=== PATIENT | male | born 1950 | race African-American/Black ===

== ENCOUNTER 2016-08-09 09:39 | Inpatient (IN) | payer MEDICARE, MEDICAID ==
[~2016-08-09] VITALS: Ht 104.1 cm; Wt 40.5 kg
[~2016-08-09 09:39] MED LIST: ALPR1TAB2 PO; BENZ1TAB7 PO; DIPH25CA83 PO; ENAL20TA PO; FERR-63 PO; FLUP1TAB MT; GABA-290 PO; IBUP-2029 PO; METO100T5 PO; NIFE90TA43 PO; QUET50TA21 PO
[2016-08-09] MEDS ORDERED: SODIUM CHLORIDE 0.9% 1,000 ML IV ONE (10:15)
[2016-08-09 10:47] LABS: HEMATOCRIT. 28.9 % (42.0-52.0); HEMOGLOBIN. 9.4 g/dL (14.0-18.0); MEAN CORPUSCULAR HEMOGLOBIN 28.2 pg (28.0-32.0); MEAN CORPUSCULAR HGB CONC 32.4 g/dL (31.0-37.0); MEAN CORPUSCULAR VOLUME 86.8 fL (80.0-94.0); MEAN PLATELET VOLUME 7.1 fl (7.4-10.4); PLATELET 518 x1000/uL (130-400); RED BLOOD CELL COUNT 3.32 mill/uL (4.7-6.1); RED CELL DISTRIBUTION WIDTH 16.5 % (11.6-14.6); WHITE BLOOD COUNT 25.7 x1000/uL (4.5-11.0)
[2016-08-09 10:50] LABS: DIFFERENTIAL COMMENT 1
[2016-08-09 10:55] LABS: INR 1.2; PROTHROMBIN TIME 12.4 sec
[2016-08-09 11:05] LABS: ALANINE AMINOTRANSFERASE 18 IU/L (13-61); ALBUMIN 2.4 g/dL (3.4-5.0); ANION GAP 14; CALCIUM 8.6 mg/dL (8.5-10.1); CARBON DIOXIDE 22 mEq/L (21-32); CHLORIDE 101 mEq/L (98-107); INDEX HEMOLYSI 1 (1-3); INDEX ICTERIC 1 (1-4); INDEX LIPEMIC 1 (1-3); UREA NITROGEN BLOOD 20 mg/dL (7-21); eGFR > 60 mL/min (>60)
[2016-08-09 11:06] LABS: NT PRO B-TYPE NATRIURETIC PEP 2582 pg/mL (5-125); TROPONIN I < 0.02 ng/mL (0.00-0.04)
[2016-08-09 11:36] LABS: PLATELET ESTIMATE SLIGHTLY INCREASED
[2016-08-09 11:37] LABS: HYPOCHROMASIA 1+
[2016-08-09] MEDS ORDERED: CLINDAMYCIN 600 MG in DEXTROSE 5% WATER 50 ML IV ONE (11:45)
[2016-08-09 13:45] VITALS: BP 118/61
[2016-08-09] MEDS ORDERED: MAGNESIUM/ALUMINUM HYDROXIDE/SIMETHICONE 30ML UDC PO PRN (13:45)
[2016-08-09] MEDS ORDERED: ONDANSETRON HCL 4MG/2ML VIAL IV PRN (13:45)
[2016-08-09] MEDS ORDERED: IPRATROPIUM/ALBUTEROL 0.5-3(2.5)MG/3ML NEB INH PRN (13:45)
[2016-08-09 14:21] VITALS: BP 118/61
[2016-08-09] MEDS ORDERED: AMLODIPINE 5MG TABLET PO SCH (14:45)
[2016-08-09] MEDS ORDERED: ASPIRIN 81MG EC TABLET PO SCH (14:45)
[2016-08-09] MEDS: ACETAMINOPHEN 325MG TABLET PO PRN (15:02)
[2016-08-09] MEDS: ENOXAPARIN 40MG/0.4ML SYR SUBCUT SCH (15:04)
[2016-08-09 15:13] LABS: *AMPHETAMINES SCREEN URINE NEGATIVE (NEGATIVE); *BARBITURATES SCREEN URINE NEGATIVE (NEGATIVE); *BENZODIAZEPINES SCREEN URINE NEGATIVE (NEGATIVE); *COCAINE SCREEN URINE NEGATIVE (NEGATIVE); CANNABINOID URINE SCREEN PRESUMTIVE POSITIVE (NEGATIVE); ECSTASY MDMA SCREEN URINE NEGATIVE (NEGATIVE); METHADONE URINE SCREEN NEGATIVE (NEGATIVE); OPIATES URINE SCREEN PRESUMTIVE POSITIVE (NEGATIVE); PHENCYCLIDINE URINE SCREEN NEGATIVE (NEGATIVE)
[2016-08-09 16:00] VITALS: BP 104/58
[2016-08-09] MEDS ORDERED: INFLUENZA VIRUS VACCINE 0.5ML SYR IM ONE (16:00)
[2016-08-09] MEDS ORDERED: PNEUMOCOCCAL 23-VAL P-SAC VAC 0.5 ML IM ONE (16:00)
[2016-08-09] MEDS: PIPERACILLIN/TAZ 3.375G PREMIX 50 ML IV SCH ×2 (16:06→22:02)
[2016-08-09] MEDS ORDERED: IBUPROFEN 600MG TABLET PO PRN (16:45)
[2016-08-09] MEDS: BENZTROPINE MESYLATE 1MG TABLET PO SCH (16:59)
[2016-08-09] MEDS: HYDROCODONE/ACETAMINOPHEN 5/325MG TABLET PO PRN (16:59)
[2016-08-09] MEDS: FERROUS SULFATE 325MG TABLET PO SCH (16:59)
[2016-08-09] MEDS: GABAPENTIN 300MG CAPSULE PO SCH ×2 (17:00→17:18)
[2016-08-09] MEDS ORDERED: MEDICATION NOT ON FORMULARY EA (Gabapentin 600 MG) PO SCH (17:00)
[2016-08-09 17:04] LABS: ANION GAP 15; CALCIUM 8.8 mg/dL (8.5-10.1); CARBON DIOXIDE 21 mEq/L (21-32); CHLORIDE 102 mEq/L (98-107); CREATINE KINASE 127 IU/L (39-308); CREATINE KINASE MB FRACTION 1.3 ng/mL (0.5-3.6); INDEX HEMOLYSI 1 (1-3); INDEX ICTERIC 1 (1-4); INDEX LIPEMIC 1 (1-3); TROPONIN I < 0.02 ng/mL (0.00-0.04); UREA NITROGEN BLOOD 24 mg/dL (7-21); eGFR > 60 mL/min (>60)
[2016-08-09 20:00] VITALS: BP 136/80
[2016-08-09] MEDS ORDERED: MEDICATION NOT ON FORMULARY EA (Alprazolam (Xanax) 1 MG) PO SCH (21:00)
[2016-08-09] MEDS ORDERED: FLUPHENAZINE HCL 1 MG MT SCH (21:00)
[2016-08-09] MEDS: BLOOD SUGAR DIAGNOSTIC STRIP TEST SCH (21:00)
[2016-08-09] MEDS: INSULIN LISPRO 100 UNITS/ML SUBCUT SCH (21:00)
[2016-08-09] MEDS: DIPHENHYDRAMINE 50MG CAPSULE PO SCH (22:01)
[2016-08-09] MEDS: ALPRAZOLAM 0.5 MG TABLET PO SCH (22:01)
[2016-08-09] MEDS: QUETIAPINE FUMARATE 50MG TABLET PO SCH (22:01)
[2016-08-09] MEDS: METOPROLOL TARTRATE 25MG TABLET PO SCH (22:02)
[2016-08-09] MEDS: FLUPHENAZINE HCL 1 MG PO SCH (23:05)
[2016-08-10] VITALS (9 sets, daily range): BP systolic 68–118; BP diastolic 45–76
[2016-08-10 04:04] LABS: CREATINE KINASE 84 IU/L (39-308); CREATINE KINASE MB FRACTION 1.6 ng/mL (0.5-3.6); INDEX HEMOLYSI 1 (1-3); TROPONIN I < 0.02 ng/mL (0.00-0.04)
[2016-08-10] MEDS: PIPERACILLIN/TAZ 3.375G PREMIX 50 ML IV SCH ×3 (05:17→22:24)
[2016-08-10] MEDS: HYDROCODONE/ACETAMINOPHEN 5/325MG TABLET PO PRN ×2 (05:17→22:54)
[2016-08-10 05:55] LABS: HEMATOCRIT. 29.4 % (42.0-52.0); HEMOGLOBIN. 9.6 g/dL (14.0-18.0); MEAN CORPUSCULAR HEMOGLOBIN 28.4 pg (28.0-32.0); MEAN CORPUSCULAR HGB CONC 32.6 g/dL (31.0-37.0); MEAN CORPUSCULAR VOLUME 87.3 fL (80.0-94.0); MEAN PLATELET VOLUME 6.8 fl (7.4-10.4); PLATELET 492 x1000/uL (130-400); RED BLOOD CELL COUNT 3.38 mill/uL (4.7-6.1); RED CELL DISTRIBUTION WIDTH 16.2 % (11.6-14.6); WHITE BLOOD COUNT 21.7 x1000/uL (4.5-11.0)
[2016-08-10] MEDS: BLOOD SUGAR DIAGNOSTIC STRIP TEST SCH ×4 (06:25→21:00)
[2016-08-10 06:27] LABS: ANION GAP 14; CALCIUM 8.5 mg/dL (8.5-10.1); CARBON DIOXIDE 21 mEq/L (21-32); CHLORIDE 102 mEq/L (98-107); HDL CHOLESTEROL 29 mg/dL (40-59); INDEX HEMOLYSI 1 (1-3); INDEX ICTERIC 1 (1-4); INDEX LIPEMIC 1 (1-3); LDL CHOLESTEROL 71 mg/dL (5-100); MAGNESIUM 2.1 mg/dL (1.8-2.4); TRIGLYCERIDE 96 mg/dL (0-150); UREA NITROGEN BLOOD 29 mg/dL (7-21); eGFR > 60 mL/min (>60)
[2016-08-10 06:28] LABS: TROPONIN I < 0.02 ng/mL (0.00-0.04)
[2016-08-10 06:51] LABS: DIFFERENTIAL COMMENT 1
[2016-08-10] MEDS: INSULIN LISPRO 100 UNITS/ML SUBCUT SCH ×4 (07:50→22:40)
[2016-08-10] MEDS: AMLODIPINE 5MG TABLET PO SCH (09:00)
[2016-08-10] MEDS: METOPROLOL TARTRATE 25MG TABLET PO SCH ×2 (09:00→21:00)
[2016-08-10] MEDS: BENZTROPINE MESYLATE 1MG TABLET PO SCH ×2 (09:07→17:59)
[2016-08-10] MEDS: FERROUS SULFATE 325MG TABLET PO SCH ×2 (09:08→17:59)
[2016-08-10] MEDS: ASPIRIN 81MG EC TABLET PO SCH (09:08)
[2016-08-10] MEDS: GABAPENTIN 300MG CAPSULE PO SCH ×2 (09:10→17:59)
[2016-08-10 12:28] LABS: ATYPICAL LYMPHOCYTES 2; PLATELET ESTIMATE SLIGHTLY INCREASED
[2016-08-10] MEDS ORDERED: SODIUM CHLORIDE 0.9% 250 ML IV ONE (13:15)
[2016-08-10 13:47] LABS: CLARITY URINE TURBID (CLEAR); COLOR URINE YELLOW (YELLOW); GLUCOSE URINE NEGATIVE (NEGATIVE); KETONES URINE NEGATIVE (NEGATIVE); LEUKOCYTE ESTERASE URINE 3+ (NEGATIVE); NITRITE URINE NEGATIVE (NEGATIVE); OCCULT BLOOD URINE 2+ (NEGATIVE); PROTEIN URINE 2+ (NEGATIVE); SPECIFIC GRAVITY URINE 1.026 (1.005-1.030); UROBILINOGEN URINE 0.2 E.U./dL (0.2-1.0)
[2016-08-10 14:21] LABS: WBC URINE TNTC /hpf (0-2)
[2016-08-10 14:23] LABS: BACTERIA URINE 3+; SQUAMOUS EPITHELIAL CELL URINE FEW /lpf (RARE/1+)
[2016-08-10] MEDS: ENOXAPARIN 40MG/0.4ML SYR SUBCUT SCH (16:28)
[2016-08-10] MEDS: ALPRAZOLAM 0.5 MG TABLET PO SCH (21:00)
[2016-08-10] MEDS: QUETIAPINE FUMARATE 50MG TABLET PO SCH (21:00)
[2016-08-10] MEDS: DIPHENHYDRAMINE 50MG CAPSULE PO SCH (21:00)
[2016-08-10] MEDS: FLUPHENAZINE HCL 1 MG PO SCH (22:46)
[2016-08-11] VITALS (11 sets, daily range): BP systolic 108–137; BP diastolic 46–70
[2016-08-11] MEDS: PIPERACILLIN/TAZ 3.375G PREMIX 50 ML IV SCH ×3 (05:26→22:00)
[2016-08-11 05:55] LABS: HEMATOCRIT. 27.4 % (42.0-52.0); MEAN CORPUSCULAR HGB CONC 32.7 g/dL (31.0-37.0); MEAN CORPUSCULAR VOLUME 85.6 fL (80.0-94.0); MEAN PLATELET VOLUME 7.2 fl (7.4-10.4); PLATELET 521 x1000/uL (130-400); RED CELL DISTRIBUTION WIDTH 16.4 % (11.6-14.6); WHITE BLOOD COUNT 15.7 x1000/uL (4.5-11.0)
[2016-08-11 06:33] LABS: CHLORIDE 104 mEq/L (98-107); INDEX HEMOLYSI 1 (1-3); INDEX ICTERIC 1 (1-4); INDEX LIPEMIC 1 (1-3)
[2016-08-11 06:35] LABS: DIFFERENTIAL COMMENT 1
[2016-08-11 06:40] LABS: ANION GAP 16; CALCIUM 8.4 mg/dL (8.5-10.1); CARBON DIOXIDE 21 mEq/L (21-32); MAGNESIUM 2.4 mg/dL (1.8-2.4); UREA NITROGEN BLOOD 32 mg/dL (7-21); eGFR > 60 mL/min (>60)
[2016-08-11] MEDS: BLOOD SUGAR DIAGNOSTIC STRIP TEST SCH ×4 (07:30→21:00)
[2016-08-11] MEDS: INSULIN LISPRO 100 UNITS/ML SUBCUT SCH ×4 (08:00→21:00)
[2016-08-11] MEDS: FERROUS SULFATE 325MG TABLET PO SCH ×2 (09:07→16:37)
[2016-08-11] MEDS: ASPIRIN 81MG EC TABLET PO SCH (09:07)
[2016-08-11] MEDS: METOPROLOL TARTRATE 25MG TABLET PO SCH ×2 (09:08→21:11)
[2016-08-11] MEDS: GABAPENTIN 300MG CAPSULE PO SCH ×2 (09:08→16:39)
[2016-08-11] MEDS: BENZTROPINE MESYLATE 1MG TABLET PO SCH ×2 (09:08→16:38)
[2016-08-11] MEDS: AMLODIPINE 5MG TABLET PO SCH (09:08)
[2016-08-11 12:28] LABS: ATYPICAL LYMPHOCYTES 1; PLATELET ESTIMATE INCREASED
[2016-08-11] MEDS: ENOXAPARIN 40MG/0.4ML SYR SUBCUT SCH (16:37)
[2016-08-11] MEDS: IBUPROFEN 600MG TABLET PO PRN (16:38)
[2016-08-11] MEDS: QUETIAPINE FUMARATE 50MG TABLET PO SCH (21:08)
[2016-08-11] MEDS: ALPRAZOLAM 0.5 MG TABLET PO SCH (21:08)
[2016-08-11] MEDS: FLUPHENAZINE HCL 1 MG PO SCH (21:08)
[2016-08-11] MEDS: DIPHENHYDRAMINE 50MG CAPSULE PO SCH (21:08)
[2016-08-12] VITALS (23 sets, daily range): BP systolic 65–142; BP diastolic 17–80
[2016-08-12] MEDS: IBUPROFEN 600MG TABLET PO PRN (00:51)
[2016-08-12] MEDS: PIPERACILLIN/TAZ 3.375G PREMIX 50 ML IV SCH ×3 (05:39→20:57)
[2016-08-12] MEDS: INSULIN LISPRO 100 UNITS/ML SUBCUT SCH ×4 (08:00→20:58)
[2016-08-12] MEDS: ASPIRIN 81MG EC TABLET PO SCH (08:25)
[2016-08-12] MEDS: BLOOD SUGAR DIAGNOSTIC STRIP TEST SCH ×4 (08:25→20:57)
[2016-08-12] MEDS: BENZTROPINE MESYLATE 1MG TABLET PO SCH ×2 (08:25→18:12)
[2016-08-12] MEDS: GABAPENTIN 300MG CAPSULE PO SCH ×2 (08:25→17:00)
[2016-08-12] MEDS: FERROUS SULFATE 325MG TABLET PO SCH ×2 (08:25→18:14)
[2016-08-12] MEDS: AMLODIPINE 5MG TABLET PO SCH (08:29)
[2016-08-12] MEDS: METOPROLOL TARTRATE 25MG TABLET PO SCH ×2 (08:29→20:58)
[2016-08-12] MEDS: ENOXAPARIN 40MG/0.4ML SYR SUBCUT SCH (14:12)
[2016-08-12] MEDS: DIPHENHYDRAMINE 50MG CAPSULE PO SCH ×2 (14:12→20:57)
[2016-08-12 16:36] LABS: EOSINOPHILS % 6.4 % (0.0-5.0); HEMATOCRIT. 28.1 % (42.0-52.0); HEMOGLOBIN. 9.1 g/dL (14.0-18.0); LYMPHOCYTES % 11.7 % (20.0-50.0); MEAN CORPUSCULAR HEMOGLOBIN 28.1 pg (28.0-32.0); MEAN CORPUSCULAR HGB CONC 32.4 g/dL (31.0-37.0); MEAN CORPUSCULAR VOLUME 86.7 fL (80.0-94.0); MEAN PLATELET VOLUME 7.3 fl (7.4-10.4); MONOCYTES % 9.3 % (2.0-8.0); NEUTROPHILS % 71.6 % (40.0-76.0); PLATELET 525 x1000/uL (130-400); RED BLOOD CELL COUNT 3.24 mill/uL (4.7-6.1); RED CELL DISTRIBUTION WIDTH 16.6 % (11.6-14.6); WHITE BLOOD COUNT 14.6 x1000/uL (4.5-11.0)
[2016-08-12 16:48] LABS: ANION GAP 10; CALCIUM 8.2 mg/dL (8.5-10.1); CARBON DIOXIDE 27 mEq/L (21-32); CHLORIDE 104 mEq/L (98-107); INDEX HEMOLYSI 1 (1-3); INDEX ICTERIC 1 (1-4); INDEX LIPEMIC 1 (1-3); UREA NITROGEN BLOOD 20 mg/dL (7-21); eGFR > 60 mL/min (>60)
[2016-08-12] MEDS: FLUPHENAZINE HCL 1 MG PO SCH (20:57)
[2016-08-12] MEDS: ALPRAZOLAM 0.5 MG TABLET PO SCH (20:57)
[2016-08-12] MEDS: QUETIAPINE FUMARATE 50MG TABLET PO SCH (20:57)
[2016-08-13] VITALS (23 sets, daily range): BP systolic 58–155; BP diastolic 25–91
[2016-08-13] MEDS: PIPERACILLIN/TAZ 3.375G PREMIX 50 ML IV SCH ×3 (05:52→21:28)
[2016-08-13] MEDS: BLOOD SUGAR DIAGNOSTIC STRIP TEST SCH ×4 (07:18→21:30)
[2016-08-13] MEDS: INSULIN LISPRO 100 UNITS/ML SUBCUT SCH ×4 (07:18→21:00)
[2016-08-13] MEDS: FERROUS SULFATE 325MG TABLET PO SCH ×2 (08:39→19:14)
[2016-08-13] MEDS: GABAPENTIN 300MG CAPSULE PO SCH ×3 (08:39→17:00)
[2016-08-13] MEDS: ASPIRIN 81MG EC TABLET PO SCH ×3 (08:39→09:00)
[2016-08-13] MEDS: METOPROLOL TARTRATE 25MG TABLET PO SCH ×2 (08:39→21:29)
[2016-08-13] MEDS: BENZTROPINE MESYLATE 1MG TABLET PO SCH ×2 (08:39→19:14)
[2016-08-13] MEDS: AMLODIPINE 5MG TABLET PO SCH (08:40)
[2016-08-13] MEDS: IBUPROFEN 600MG TABLET PO PRN (08:50)
[2016-08-13] MEDS ORDERED: SODIUM CHLORIDE 0.9% 250 ML IV SCH (09:15)
[2016-08-13] MEDS: DIPHENHYDRAMINE 50MG/ML VIAL IV PRN (10:21)
[2016-08-13] MEDS ORDERED: ALBUMIN HUMAN 25GM/100ML (25%) IV SCH (12:30)
[2016-08-13] MEDS: ENOXAPARIN 40MG/0.4ML SYR SUBCUT SCH (13:57)
[2016-08-13] MEDS: FLUPHENAZINE HCL 1 MG PO SCH (21:29)
[2016-08-13] MEDS: ALPRAZOLAM 0.5 MG TABLET PO SCH (21:29)
[2016-08-13] MEDS: QUETIAPINE FUMARATE 50MG TABLET PO SCH (21:29)
[2016-08-13] MEDS: DIPHENHYDRAMINE 50MG CAPSULE PO SCH (21:29)
[2016-08-13 23:48] LABS: BASOPHILS % 0.7 % (0.0-2.0); EOSINOPHILS % 8.6 % (0.0-5.0); HEMATOCRIT. 28.4 % (42.0-52.0); HEMOGLOBIN. 9.1 g/dL (14.0-18.0); LYMPHOCYTES % 21.2 % (20.0-50.0); MEAN CORPUSCULAR HGB CONC 31.9 g/dL (31.0-37.0); MEAN CORPUSCULAR VOLUME 87.7 fL (80.0-94.0); MEAN PLATELET VOLUME 7.1 fl (7.4-10.4); MONOCYTES % 12.7 % (2.0-8.0); NEUTROPHILS % 56.8 % (40.0-76.0); PLATELET 514 x1000/uL (130-400); RED BLOOD CELL COUNT 3.25 mill/uL (4.7-6.1); RED CELL DISTRIBUTION WIDTH 16.3 % (11.6-14.6); WHITE BLOOD COUNT 11.5 x1000/uL (4.5-11.0)
[2016-08-14] VITALS (18 sets, daily range): BP systolic 80–168; BP diastolic 44–111
[2016-08-14 00:16] LABS: ANION GAP 11; CALCIUM 8.4 mg/dL (8.5-10.1); CARBON DIOXIDE 25 mEq/L (21-32); CHLORIDE 105 mEq/L (98-107); INDEX HEMOLYSI 1 (1-3); INDEX ICTERIC 1 (1-4); INDEX LIPEMIC 1 (1-3); UREA NITROGEN BLOOD 14 mg/dL (7-21); eGFR > 60 mL/min (>60)
[2016-08-14] MEDS: PIPERACILLIN/TAZ 3.375G PREMIX 50 ML IV SCH ×3 (06:02→22:28)
[2016-08-14] MEDS: BLOOD SUGAR DIAGNOSTIC STRIP TEST SCH ×4 (07:30→21:00)
[2016-08-14] MEDS: INSULIN LISPRO 100 UNITS/ML SUBCUT SCH ×4 (08:00→22:44)
[2016-08-14] MEDS: ASPIRIN 81MG EC TABLET PO SCH ×2 (09:00→09:03)
[2016-08-14] MEDS: BENZTROPINE MESYLATE 1MG TABLET PO SCH ×3 (09:00→16:26)
[2016-08-14] MEDS: FERROUS SULFATE 325MG TABLET PO SCH ×3 (09:00→16:26)
[2016-08-14] MEDS: GABAPENTIN 300MG CAPSULE PO SCH ×2 (09:00→16:26)
[2016-08-14] MEDS: AMLODIPINE 5MG TABLET PO SCH ×2 (09:00→09:04)
[2016-08-14] MEDS: METOPROLOL TARTRATE 25MG TABLET PO SCH ×3 (09:00→22:29)
[2016-08-14] MEDS: HYDROCODONE/ACETAMINOPHEN 5/325MG TABLET PO PRN ×2 (09:03→16:26)
[2016-08-14 11:35] LABS: ANION GAP 12; CALCIUM 8.8 mg/dL (8.5-10.1); CARBON DIOXIDE 25 mEq/L (21-32); CHLORIDE 105 mEq/L (98-107); INDEX HEMOLYSI 1 (1-3); INDEX ICTERIC 1 (1-4); INDEX LIPEMIC 1 (1-3); UREA NITROGEN BLOOD 14 mg/dL (7-21); eGFR > 60 mL/min (>60)
[2016-08-14 11:40] LABS: DIFFERENTIAL COMMENT 1; HEMATOCRIT. 31.4 % (42.0-52.0); HEMOGLOBIN. 10.3 g/dL (14.0-18.0); MEAN CORPUSCULAR HEMOGLOBIN 28.4 pg (28.0-32.0); MEAN CORPUSCULAR HGB CONC 32.8 g/dL (31.0-37.0); MEAN CORPUSCULAR VOLUME 86.3 fL (80.0-94.0); MEAN PLATELET VOLUME 6.9 fl (7.4-10.4); PLATELET 603 x1000/uL (130-400); RED BLOOD CELL COUNT 3.64 mill/uL (4.7-6.1); RED CELL DISTRIBUTION WIDTH 15.9 % (11.6-14.6); WHITE BLOOD COUNT 16.2 x1000/uL (4.5-11.0)
[2016-08-14 12:12] LABS: ANISOCYTOSIS 1+; PLATELET ESTIMATE INCREASED
[2016-08-14] MEDS: ENOXAPARIN 40MG/0.4ML SYR SUBCUT SCH (13:24)
[2016-08-14] MEDS: ALPRAZOLAM 0.5 MG TABLET PO SCH (21:00)
[2016-08-14] MEDS: FLUPHENAZINE HCL 1 MG PO SCH (21:00)
[2016-08-14] MEDS: QUETIAPINE FUMARATE 50MG TABLET PO SCH (22:29)
[2016-08-14] MEDS: DIPHENHYDRAMINE 50MG CAPSULE PO SCH (22:29)
[2016-08-15] VITALS (18 sets, daily range): BP systolic 85–175; BP diastolic 63–135
[2016-08-15] MEDS: IBUPROFEN 600MG TABLET PO PRN (03:19)
[2016-08-15] MEDS: DIPHENHYDRAMINE 50MG/ML VIAL IV PRN (04:56)
[2016-08-15] MEDS: PIPERACILLIN/TAZ 3.375G PREMIX 50 ML IV SCH ×3 (04:57→21:27)
[2016-08-15 07:04] LABS: BASOPHILS % 0.3 % (0.0-2.0); EOSINOPHILS % 3.8 % (0.0-5.0); HEMOGLOBIN. 9.4 g/dL (14.0-18.0); LYMPHOCYTES % 11.6 % (20.0-50.0); MEAN CORPUSCULAR HEMOGLOBIN 27.9 pg (28.0-32.0); MEAN CORPUSCULAR HGB CONC 32.3 g/dL (31.0-37.0); MEAN CORPUSCULAR VOLUME 86.4 fL (80.0-94.0); MEAN PLATELET VOLUME 7.2 fl (7.4-10.4); MONOCYTES % 8.6 % (2.0-8.0); NEUTROPHILS % 75.7 % (40.0-76.0); PLATELET 580 x1000/uL (130-400); RED BLOOD CELL COUNT 3.36 mill/uL (4.7-6.1); RED CELL DISTRIBUTION WIDTH 16.2 % (11.6-14.6); WHITE BLOOD COUNT 15.2 x1000/uL (4.5-11.0)
[2016-08-15 07:29] LABS: CHLORIDE 101 mEq/L (98-107); INDEX HEMOLYSI 1 (1-3); INDEX ICTERIC 1 (1-4); INDEX LIPEMIC 1 (1-3)
[2016-08-15 07:43] LABS: ANION GAP 13; CALCIUM 8.8 mg/dL (8.5-10.1); CARBON DIOXIDE 25 mEq/L (21-32); UREA NITROGEN BLOOD 13 mg/dL (7-21); eGFR > 60 mL/min (>60)
[2016-08-15] MEDS: BLOOD SUGAR DIAGNOSTIC STRIP TEST SCH ×4 (07:45→20:35)
[2016-08-15] MEDS: INSULIN LISPRO 100 UNITS/ML SUBCUT SCH ×4 (07:46→20:42)
[2016-08-15] MEDS: BENZTROPINE MESYLATE 1MG TABLET PO SCH ×2 (08:27→17:16)
[2016-08-15] MEDS: FERROUS SULFATE 325MG TABLET PO SCH ×2 (08:28→17:16)
[2016-08-15] MEDS: ASPIRIN 81MG EC TABLET PO SCH (08:28)
[2016-08-15] MEDS: GABAPENTIN 300MG CAPSULE PO SCH ×2 (08:28→17:00)
[2016-08-15] MEDS: METOPROLOL TARTRATE 25MG TABLET PO SCH ×3 (09:00→20:35)
[2016-08-15] MEDS: AMLODIPINE 5MG TABLET PO SCH ×2 (09:00→12:09)
[2016-08-15] MEDS ORDERED: DIPHENHYDRAMINE 50MG/ML VIAL IV ONE (11:00)
[2016-08-15] MEDS ORDERED: FENTANYL CITRATE/PF 50MCG/ML 2ML VIAL IV ONE (11:00)
[2016-08-15] MEDS: ENOXAPARIN 40MG/0.4ML SYR SUBCUT SCH (13:10)
[2016-08-15] MEDS ORDERED: IOHEXOL-300 100 ML BOTTLE ONE (13:55)
[2016-08-15] MEDS: CLONIDINE 0.1MG TABLET PO PRN (15:04)
[2016-08-15] MEDS: QUETIAPINE FUMARATE 50MG TABLET PO SCH (20:34)
[2016-08-15] MEDS: FLUPHENAZINE HCL 1 MG PO SCH (20:34)
[2016-08-15] MEDS: DIPHENHYDRAMINE 50MG CAPSULE PO SCH (20:34)
[2016-08-16] VITALS: BP 130/74
[2016-08-16] MEDS: IBUPROFEN 600MG TABLET PO PRN ×3 (00:34→20:13)
[2016-08-16] MEDS: DIPHENHYDRAMINE 50MG/ML VIAL IV PRN ×2 (00:35→22:09)
[2016-08-16 04:00] VITALS: BP 146/70
[2016-08-16] MEDS: PIPERACILLIN/TAZ 3.375G PREMIX 50 ML IV SCH ×3 (06:01→22:05)
[2016-08-16] MEDS: BLOOD SUGAR DIAGNOSTIC STRIP TEST SCH ×4 (06:12→20:13)
[2016-08-16] MEDS: INSULIN LISPRO 100 UNITS/ML SUBCUT SCH ×4 (07:15→20:17)
[2016-08-16 07:50] LABS: BASOPHILS % 0.4 % (0.0-2.0); EOSINOPHILS % 4.4 % (0.0-5.0); HEMATOCRIT. 28.8 % (42.0-52.0); HEMOGLOBIN. 9.4 g/dL (14.0-18.0); LYMPHOCYTES % 12.2 % (20.0-50.0); MEAN CORPUSCULAR HEMOGLOBIN 28.1 pg (28.0-32.0); MEAN CORPUSCULAR HGB CONC 32.5 g/dL (31.0-37.0); MEAN CORPUSCULAR VOLUME 86.5 fL (80.0-94.0); MONOCYTES % 10.8 % (2.0-8.0); NEUTROPHILS % 72.2 % (40.0-76.0); PLATELET 555 x1000/uL (130-400); RED BLOOD CELL COUNT 3.33 mill/uL (4.7-6.1); RED CELL DISTRIBUTION WIDTH 16.1 % (11.6-14.6); WHITE BLOOD COUNT 15.9 x1000/uL (4.5-11.0)
[2016-08-16 08:00] VITALS: BP 145/74
[2016-08-16 08:04] LABS: ANION GAP 12; CARBON DIOXIDE 26 mEq/L (21-32); CHLORIDE 101 mEq/L (98-107); INDEX HEMOLYSI 1 (1-3); INDEX ICTERIC 1 (1-4); INDEX LIPEMIC 1 (1-3); UREA NITROGEN BLOOD 14 mg/dL (7-21); eGFR > 60 mL/min (>60)
[2016-08-16] MEDS: GABAPENTIN 300MG CAPSULE PO SCH ×2 (08:06→16:55)
[2016-08-16] MEDS: METOPROLOL TARTRATE 25MG TABLET PO SCH ×2 (08:06→20:12)
[2016-08-16] MEDS: BENZTROPINE MESYLATE 1MG TABLET PO SCH ×2 (08:07→16:51)
[2016-08-16] MEDS: FERROUS SULFATE 325MG TABLET PO SCH ×2 (08:07→16:51)
[2016-08-16] MEDS: ASPIRIN 81MG EC TABLET PO SCH (08:07)
[2016-08-16] MEDS: AMLODIPINE 5MG TABLET PO SCH (08:07)
[2016-08-16 12:00] VITALS: BP 138/75
[2016-08-16] MEDS: ENOXAPARIN 40MG/0.4ML SYR SUBCUT SCH (14:30)
[2016-08-16 16:00] VITALS: BP 160/86
[2016-08-16] MEDS: CLONIDINE 0.1MG TABLET PO PRN (16:51)
[2016-08-16 20:00] VITALS: BP 158/79
[2016-08-16] MEDS: FLUPHENAZINE HCL 1 MG PO SCH (20:12)
[2016-08-16] MEDS: DIPHENHYDRAMINE 50MG CAPSULE PO SCH (20:12)
[2016-08-16] MEDS: QUETIAPINE FUMARATE 50MG TABLET PO SCH (20:12)
[2016-08-17] VITALS: BP 130/72
[2016-08-17] MEDS: ACETAMINOPHEN 325MG TABLET PO PRN ×2 (00:21→09:30)
[2016-08-17 04:00] VITALS: BP 121/80
[2016-08-17] MEDS: DIPHENHYDRAMINE 50MG/ML VIAL IV PRN ×3 (04:22→23:44)
[2016-08-17] MEDS: PIPERACILLIN/TAZ 3.375G PREMIX 50 ML IV SCH ×3 (05:52→22:29)
[2016-08-17] MEDS: BLOOD SUGAR DIAGNOSTIC STRIP TEST SCH ×4 (05:59→20:44)
[2016-08-17] MEDS: INSULIN LISPRO 100 UNITS/ML SUBCUT SCH ×4 (06:53→20:44)
[2016-08-17 08:00] VITALS: BP 148/71
[2016-08-17] MEDS: ASPIRIN 81MG EC TABLET PO SCH ×2 (09:00→09:30)
[2016-08-17] MEDS: GABAPENTIN 300MG CAPSULE PO SCH ×2 (09:00→17:00)
[2016-08-17] MEDS: FERROUS SULFATE 325MG TABLET PO SCH ×2 (09:30→18:10)
[2016-08-17] MEDS: AMLODIPINE 5MG TABLET PO SCH (09:32)
[2016-08-17] MEDS: BENZTROPINE MESYLATE 1MG TABLET PO SCH ×2 (09:34→18:11)
[2016-08-17] MEDS: METOPROLOL TARTRATE 25MG TABLET PO SCH ×2 (09:34→20:39)
[2016-08-17] MEDS: IBUPROFEN 600MG TABLET PO PRN ×2 (11:41→22:45)
[2016-08-17 12:00] VITALS: BP 144/83
[2016-08-17] MEDS: FLUPHENAZINE HCL 1 MG PO SCH (12:44)
[2016-08-17] MEDS ORDERED: ENOXAPARIN 30MG/0.3ML SYR SUBCUT SCH (13:21)
[2016-08-17] MEDS: ENOXAPARIN 30MG/0.3ML SYR SUBCUT SCH (13:48)
[2016-08-17 16:00] VITALS: BP 160/92
[2016-08-17 19:01] LABS: CLARITY URINE CLEAR (CLEAR); COLOR URINE YELLOW (YELLOW); GLUCOSE URINE NEGATIVE (NEGATIVE); KETONES URINE NEGATIVE (NEGATIVE); LEUKOCYTE ESTERASE URINE 3+ (NEGATIVE); NITRITE URINE NEGATIVE (NEGATIVE); OCCULT BLOOD URINE 3+ (NEGATIVE); PROTEIN URINE 2+ (NEGATIVE); SPECIFIC GRAVITY URINE 1.015 (1.005-1.030); UROBILINOGEN URINE 0.2 E.U./dL (0.2-1.0)
[2016-08-17 20:00] VITALS: BP 164/76
[2016-08-17 20:05] LABS: BACTERIA URINE 1+; RBC URINE 25-50 /hpf (0-2); SQUAMOUS EPITHELIAL CELL URINE NONE SEEN /lpf (RARE/1+)
[2016-08-17] MEDS: DIPHENHYDRAMINE 50MG CAPSULE PO SCH (20:39)
[2016-08-17] MEDS: QUETIAPINE FUMARATE 50MG TABLET PO SCH (20:40)
[2016-08-17 21:10] LABS: CLARITY URINE CLOUDY (CLEAR); COLOR URINE ORANGE (YELLOW); GLUCOSE URINE NEGATIVE (NEGATIVE); KETONES URINE NEGATIVE (NEGATIVE); LEUKOCYTE ESTERASE URINE 3+ (NEGATIVE); NITRITE URINE NEGATIVE (NEGATIVE); OCCULT BLOOD URINE 3+ (NEGATIVE); PROTEIN URINE 2+ (NEGATIVE); UROBILINOGEN URINE 0.2 E.U./dL (0.2-1.0)
[2016-08-18] VITALS: BP 129/75
[2016-08-18 04:00] VITALS: BP 159/93
[2016-08-18] MEDS: BLOOD SUGAR DIAGNOSTIC STRIP TEST SCH ×4 (06:02→21:00)
[2016-08-18] MEDS: PIPERACILLIN/TAZ 3.375G PREMIX 50 ML IV SCH ×3 (06:04→21:00)
[2016-08-18] MEDS: INSULIN LISPRO 100 UNITS/ML SUBCUT SCH ×4 (06:15→21:00)
[2016-08-18 07:43] LABS: BASOPHILS % 0.8 % (0.0-2.0); EOSINOPHILS % 5.1 % (0.0-5.0); LYMPHOCYTES % 9.3 % (20.0-50.0); MEAN CORPUSCULAR HGB CONC 32.2 g/dL (31.0-37.0); MEAN CORPUSCULAR VOLUME 86.8 fL (80.0-94.0); MEAN PLATELET VOLUME 7.4 fl (7.4-10.4); MONOCYTES % 11.4 % (2.0-8.0); NEUTROPHILS % 73.4 % (40.0-76.0); PLATELET 566 x1000/uL (130-400); RED BLOOD CELL COUNT 3.23 mill/uL (4.7-6.1); RED CELL DISTRIBUTION WIDTH 16.5 % (11.6-14.6); WHITE BLOOD COUNT 16.1 x1000/uL (4.5-11.0)
[2016-08-18 08:00] VITALS: BP 146/62
[2016-08-18] MEDS: GABAPENTIN 300MG CAPSULE PO SCH ×2 (09:00→16:44)
[2016-08-18] MEDS: AMLODIPINE 5MG TABLET PO SCH (09:52)
[2016-08-18] MEDS: BENZTROPINE MESYLATE 1MG TABLET PO SCH ×2 (09:52→16:44)
[2016-08-18] MEDS: FLUPHENAZINE HCL 1 MG PO SCH (09:53)
[2016-08-18] MEDS: ASPIRIN 81MG EC TABLET PO SCH (09:53)
[2016-08-18] MEDS: FERROUS SULFATE 325MG TABLET PO SCH ×2 (09:53→16:44)
[2016-08-18] MEDS: METOPROLOL TARTRATE 25MG TABLET PO SCH ×2 (09:53→20:44)
[2016-08-18 12:00] VITALS: BP 139/66
[2016-08-18] MEDS ORDERED: VANCOMYCIN 1 G PREMIX 200 ML IV SCH (12:00)
[2016-08-18] MEDS: IBUPROFEN 600MG TABLET PO PRN (12:01)
[2016-08-18] MEDS: ENOXAPARIN 30MG/0.3ML SYR SUBCUT SCH (14:00)
[2016-08-18 16:00] VITALS: BP 148/72
[2016-08-18] MEDS: HYDROCODONE/ACETAMINOPHEN 5/325MG TABLET PO PRN ×2 (16:48→20:51)
[2016-08-18 20:00] VITALS: BP 164/76
[2016-08-18] MEDS ORDERED: HYDROCODONE/ACETAMINOPHEN 10/325MG TABLET ONE (20:41)
[2016-08-18] MEDS: DIPHENHYDRAMINE 50MG CAPSULE PO SCH (20:43)
[2016-08-18] MEDS: QUETIAPINE FUMARATE 50MG TABLET PO SCH (20:43)
[2016-08-19] VITALS (7 sets, daily range): BP systolic 99–169; BP diastolic 65–106
[2016-08-19] MEDS: HYDROCODONE/ACETAMINOPHEN 5/325MG TABLET PO PRN ×3 (01:16→14:41)
[2016-08-19] MEDS: IBUPROFEN 600MG TABLET PO PRN (01:58)
[2016-08-19] MEDS: PIPERACILLIN/TAZ 3.375G PREMIX 50 ML IV SCH ×3 (06:16→22:01)
[2016-08-19] MEDS: BLOOD SUGAR DIAGNOSTIC STRIP TEST SCH ×4 (06:17→21:06)
[2016-08-19] MEDS: INSULIN LISPRO 100 UNITS/ML SUBCUT SCH ×4 (07:15→21:00)
[2016-08-19] MEDS: FERROUS SULFATE 325MG TABLET PO SCH ×2 (08:36→17:26)
[2016-08-19] MEDS: METOPROLOL TARTRATE 25MG TABLET PO SCH ×2 (08:36→21:08)
[2016-08-19] MEDS: ASPIRIN 81MG EC TABLET PO SCH (08:37)
[2016-08-19] MEDS: AMLODIPINE 5MG TABLET PO SCH (08:37)
[2016-08-19] MEDS: BENZTROPINE MESYLATE 1MG TABLET PO SCH ×2 (08:37→17:26)
[2016-08-19] MEDS: CLONIDINE 0.1MG TABLET PO PRN (08:37)
[2016-08-19] MEDS: FLUPHENAZINE HCL 1 MG PO SCH (08:37)
[2016-08-19] MEDS: GABAPENTIN 300MG CAPSULE PO SCH ×2 (08:38→16:59)
[2016-08-19] MEDS: DIPHENHYDRAMINE 50MG/ML VIAL IV PRN ×2 (08:59→17:44)
[2016-08-19 09:43] LABS: BASOPHILS % 1.1 % (0.0-2.0); EOSINOPHILS % 4.9 % (0.0-5.0); HEMATOCRIT. 29.4 % (42.0-52.0); HEMOGLOBIN. 9.4 g/dL (14.0-18.0); LYMPHOCYTES % 10.5 % (20.0-50.0); MEAN CORPUSCULAR HEMOGLOBIN 28.2 pg (28.0-32.0); MEAN CORPUSCULAR HGB CONC 31.9 g/dL (31.0-37.0); MEAN CORPUSCULAR VOLUME 88.4 fL (80.0-94.0); MEAN PLATELET VOLUME 7.3 fl (7.4-10.4); NEUTROPHILS % 76.5 % (40.0-76.0); PLATELET 606 x1000/uL (130-400); RED BLOOD CELL COUNT 3.33 mill/uL (4.7-6.1); WHITE BLOOD COUNT 17.5 x1000/uL (4.5-11.0)
[2016-08-19 10:38] LABS: ANION GAP 13; CALCIUM 8.7 mg/dL (8.5-10.1); CARBON DIOXIDE 24 mEq/L (21-32); CHLORIDE 102 mEq/L (98-107); INDEX HEMOLYSI 1 (1-3); INDEX ICTERIC 1 (1-4); INDEX LIPEMIC 1 (1-3); UREA NITROGEN BLOOD 17 mg/dL (7-21); eGFR > 60 mL/min (>60)
[2016-08-19] MEDS: DEXTROSE 50% WATER 50ML SYRINGE IV PRN (12:33)
[2016-08-19] MEDS: VANCOMYCIN 500 MG PREMIX 100 ML IV SCH (14:41)
[2016-08-19] MEDS: ENOXAPARIN 30MG/0.3ML SYR SUBCUT SCH (14:41)
[2016-08-19] MEDS: DOCUSATE SODIUM 100MG CAPSULE PO SCH (17:26)
[2016-08-19] MEDS: HYDROCODONE/ACETAMINOPHEN 10/325MG TABLET PO PRN ×2 (17:27→22:01)
[2016-08-19] MEDS: DIPHENHYDRAMINE 50MG CAPSULE PO SCH (22:04)
[2016-08-19] MEDS: QUETIAPINE FUMARATE 50MG TABLET PO SCH (22:04)
[2016-08-20] MEDS: VANCOMYCIN 500 MG PREMIX 100 ML IV SCH ×2 (02:00→13:31)
[2016-08-20 04:00] VITALS: BP 135/64
[2016-08-20] MEDS: HYDROCODONE/ACETAMINOPHEN 5/325MG TABLET PO PRN ×3 (05:09→21:18)
[2016-08-20] MEDS: PIPERACILLIN/TAZ 3.375G PREMIX 50 ML IV SCH ×3 (05:20→21:19)
[2016-08-20] MEDS: INSULIN LISPRO 100 UNITS/ML SUBCUT SCH ×4 (05:25→21:00)
[2016-08-20] MEDS: BLOOD SUGAR DIAGNOSTIC STRIP TEST SCH ×4 (05:25→21:00)
[2016-08-20 08:00] VITALS: BP 159/68
[2016-08-20] MEDS: GABAPENTIN 300MG CAPSULE PO SCH ×2 (09:00→17:00)
[2016-08-20] MEDS: HYDROCODONE/ACETAMINOPHEN 10/325MG TABLET PO PRN ×3 (09:52→23:45)
[2016-08-20] MEDS: FLUPHENAZINE HCL 1 MG PO SCH (09:52)
[2016-08-20] MEDS: FERROUS SULFATE 325MG TABLET PO SCH ×2 (09:52→17:27)
[2016-08-20] MEDS: BENZTROPINE MESYLATE 1MG TABLET PO SCH ×2 (09:52→17:27)
[2016-08-20] MEDS: AMLODIPINE 5MG TABLET PO SCH (09:52)
[2016-08-20] MEDS: DOCUSATE SODIUM 100MG CAPSULE PO SCH ×2 (09:53→17:27)
[2016-08-20] MEDS: ASPIRIN 81MG EC TABLET PO SCH (09:53)
[2016-08-20] MEDS: METOPROLOL TARTRATE 25MG TABLET PO SCH ×2 (09:53→21:18)
[2016-08-20] MEDS: MICAFUNGIN 100 MG in SODIUM CHLORIDE 0.9% 100 ML IV SCH (09:53)
[2016-08-20 09:54] LABS: BASOPHILS % 1.4 % (0.0-2.0); EOSINOPHILS % 5.8 % (0.0-5.0); HEMATOCRIT. 26.4 % (42.0-52.0); HEMOGLOBIN. 8.6 g/dL (14.0-18.0); LYMPHOCYTES % 8.4 % (20.0-50.0); MEAN CORPUSCULAR HEMOGLOBIN 28.4 pg (28.0-32.0); MEAN CORPUSCULAR HGB CONC 32.4 g/dL (31.0-37.0); MEAN CORPUSCULAR VOLUME 87.6 fL (80.0-94.0); MEAN PLATELET VOLUME 7.3 fl (7.4-10.4); NEUTROPHILS % 75.4 % (40.0-76.0); PLATELET 600 x1000/uL (130-400); RED BLOOD CELL COUNT 3.02 mill/uL (4.7-6.1); RED CELL DISTRIBUTION WIDTH 17.4 % (11.6-14.6); WHITE BLOOD COUNT 15.6 x1000/uL (4.5-11.0)
[2016-08-20 10:06] LABS: ANION GAP 15; CALCIUM 8.7 mg/dL (8.5-10.1); CARBON DIOXIDE 25 mEq/L (21-32); CHLORIDE 101 mEq/L (98-107); INDEX HEMOLYSI 1 (1-3); INDEX ICTERIC 1 (1-4); INDEX LIPEMIC 1 (1-3); UREA NITROGEN BLOOD 20 mg/dL (7-21); eGFR > 60 mL/min (>60)
[2016-08-20 12:00] VITALS: BP 141/73
[2016-08-20] MEDS: DEXTROSE 50% WATER 50ML SYRINGE IV PRN (12:42)
[2016-08-20] MEDS: ENOXAPARIN 30MG/0.3ML SYR SUBCUT SCH (13:31)
[2016-08-20 16:00] VITALS: BP 117/72
[2016-08-20] MEDS: DIPHENHYDRAMINE 50MG/ML VIAL IV PRN (18:48)
[2016-08-20 20:00] VITALS: BP 167/83
[2016-08-20] MEDS: DIPHENHYDRAMINE 50MG CAPSULE PO SCH (21:18)
[2016-08-20] MEDS: QUETIAPINE FUMARATE 50MG TABLET PO SCH (21:19)
[2016-08-21] VITALS: BP 117/68
[2016-08-21] MEDS: VANCOMYCIN 500 MG PREMIX 100 ML IV SCH ×3 (02:17→22:49)
[2016-08-21] MEDS: HYDROCODONE/ACETAMINOPHEN 5/325MG TABLET PO PRN ×2 (03:48→17:05)
[2016-08-21 04:00] VITALS: BP 142/61
[2016-08-21] MEDS: HYDROCODONE/ACETAMINOPHEN 10/325MG TABLET PO PRN ×4 (05:37→21:27)
[2016-08-21] MEDS: PIPERACILLIN/TAZ 3.375G PREMIX 50 ML IV SCH ×3 (05:38→21:28)
[2016-08-21] MEDS: DIPHENHYDRAMINE 50MG/ML VIAL IV PRN ×3 (05:39→19:06)
[2016-08-21] MEDS: BLOOD SUGAR DIAGNOSTIC STRIP TEST SCH ×4 (05:43→21:16)
[2016-08-21] MEDS: INSULIN LISPRO 100 UNITS/ML SUBCUT SCH ×4 (05:44→21:00)
[2016-08-21 08:00] VITALS: BP 178/77
[2016-08-21] MEDS: DOCUSATE SODIUM 100MG CAPSULE PO SCH ×2 (09:00→16:16)
[2016-08-21] MEDS: GABAPENTIN 300MG CAPSULE PO SCH ×2 (09:00→16:16)
[2016-08-21] MEDS: FERROUS SULFATE 325MG TABLET PO SCH ×2 (10:14→16:16)
[2016-08-21] MEDS: ASPIRIN 81MG EC TABLET PO SCH (10:14)
[2016-08-21] MEDS: SODIUM HYPOCHLORITE 0.125% 473ML SOLUTION TOP SCH (10:14)
[2016-08-21] MEDS: BENZTROPINE MESYLATE 1MG TABLET PO SCH ×2 (10:14→16:16)
[2016-08-21] MEDS: FLUPHENAZINE HCL 1 MG PO SCH (10:14)
[2016-08-21] MEDS: AMLODIPINE 5MG TABLET PO SCH (10:15)
[2016-08-21] MEDS: MICAFUNGIN 100 MG in SODIUM CHLORIDE 0.9% 100 ML IV SCH (10:15)
[2016-08-21] MEDS: METOPROLOL TARTRATE 25MG TABLET PO SCH ×2 (10:15→21:25)
[2016-08-21 12:00] VITALS: BP 162/75
[2016-08-21 12:04] LABS: HEMATOCRIT. 26.5 % (42.0-52.0); HEMOGLOBIN. 8.8 g/dL (14.0-18.0); MEAN CORPUSCULAR HGB CONC 33.1 g/dL (31.0-37.0); MEAN CORPUSCULAR VOLUME 87.4 fL (80.0-94.0); MEAN PLATELET VOLUME 7.4 fl (7.4-10.4); PLATELET 556 x1000/uL (130-400); RED BLOOD CELL COUNT 3.03 mill/uL (4.7-6.1); RED CELL DISTRIBUTION WIDTH 17.1 % (11.6-14.6); WHITE BLOOD COUNT 18.3 x1000/uL (4.5-11.0)
[2016-08-21 12:09] LABS: DIFFERENTIAL COMMENT 1
[2016-08-21 12:18] LABS: ANION GAP 13; CALCIUM 8.6 mg/dL (8.5-10.1); CARBON DIOXIDE 26 mEq/L (21-32); CHLORIDE 101 mEq/L (98-107); INDEX HEMOLYSI 1 (1-3); INDEX ICTERIC 1 (1-4); INDEX LIPEMIC 1 (1-3); UREA NITROGEN BLOOD 17 mg/dL (7-21); eGFR > 60 mL/min (>60)
[2016-08-21] MEDS: ENOXAPARIN 30MG/0.3ML SYR SUBCUT SCH (14:00)
[2016-08-21] MEDS: CLONIDINE 0.1MG TABLET PO PRN (14:21)
[2016-08-21 16:00] VITALS: BP 138/69
[2016-08-21] MEDS: VANCOMYCIN HCL 1000 MG/20 ML ORAL PO SCH (17:07)
[2016-08-21 17:31] LABS: PLATELET ESTIMATE INCREASED
[2016-08-21 17:32] LABS: ANISOCYTOSIS 1+
[2016-08-21] MEDS ORDERED: VANCOMYCIN HCL 1 GM/VIAL PO SCH (18:00)
[2016-08-21] MEDS: DIPHENHYDRAMINE 50MG CAPSULE PO SCH (21:27)
[2016-08-21] MEDS: QUETIAPINE FUMARATE 50MG TABLET PO SCH (21:28)
[2016-08-22] VITALS: BP 146/73
[2016-08-22] MEDS: VANCOMYCIN 500 MG PREMIX 100 ML IV SCH ×2 (01:40→21:20)
[2016-08-22] MEDS: HYDROCODONE/ACETAMINOPHEN 5/325MG TABLET PO PRN ×2 (01:49→09:34)
[2016-08-22 04:00] VITALS: BP 140/68
[2016-08-22] MEDS: PIPERACILLIN/TAZ 3.375G PREMIX 50 ML IV SCH ×3 (06:26→22:41)
[2016-08-22] MEDS: VANCOMYCIN HCL 1000 MG/20 ML ORAL PO SCH ×4 (06:37→18:59)
[2016-08-22] MEDS: BLOOD SUGAR DIAGNOSTIC STRIP TEST SCH ×4 (06:38→21:00)
[2016-08-22] MEDS: INSULIN LISPRO 100 UNITS/ML SUBCUT SCH ×5 (06:38→21:33)
[2016-08-22] MEDS: HYDROCODONE/ACETAMINOPHEN 10/325MG TABLET PO PRN ×3 (07:36→20:35)
[2016-08-22 08:00] VITALS: BP 173/88
[2016-08-22] MEDS: GABAPENTIN 300MG CAPSULE PO SCH ×2 (09:00→17:00)
[2016-08-22] MEDS: BENZTROPINE MESYLATE 1MG TABLET PO SCH ×2 (09:29→18:44)
[2016-08-22] MEDS: FLUPHENAZINE HCL 1 MG PO SCH (09:29)
[2016-08-22] MEDS: ASPIRIN 81MG EC TABLET PO SCH (09:30)
[2016-08-22] MEDS: DOCUSATE SODIUM 100MG CAPSULE PO SCH ×3 (09:30→18:38)
[2016-08-22] MEDS: METOPROLOL TARTRATE 25MG TABLET PO SCH ×2 (09:30→21:19)
[2016-08-22] MEDS: AMLODIPINE 5MG TABLET PO SCH (09:30)
[2016-08-22] MEDS: FERROUS SULFATE 325MG TABLET PO SCH ×2 (09:31→18:39)
[2016-08-22] MEDS: MICAFUNGIN 100 MG in SODIUM CHLORIDE 0.9% 100 ML IV SCH (09:35)
[2016-08-22] MEDS: SODIUM HYPOCHLORITE 0.125% 473ML SOLUTION TOP SCH (09:35)
[2016-08-22 12:00] VITALS: BP 147/68
[2016-08-22] MEDS: DIPHENHYDRAMINE 50MG/ML VIAL IV PRN (13:25)
[2016-08-22] MEDS: ENOXAPARIN 30MG/0.3ML SYR SUBCUT SCH (14:28)
[2016-08-22 16:00] VITALS: BP 147/70
[2016-08-22] MEDS: MORPHINE SULFATE 2 MG/ML CPJ (NOT FOR IM USE) IV PRN ×2 (18:27→22:51)
[2016-08-22 20:00] VITALS: BP 151/74
[2016-08-22] MEDS: DIPHENHYDRAMINE 50MG CAPSULE PO SCH (21:19)
[2016-08-22] MEDS: QUETIAPINE FUMARATE 50MG TABLET PO SCH (21:20)
[2016-08-23] VITALS (7 sets, daily range): BP systolic 116–170; BP diastolic 65–86
[2016-08-23] MEDS: VANCOMYCIN HCL 1000 MG/20 ML ORAL PO SCH ×4 (00:28→17:24)
[2016-08-23] MEDS: MORPHINE SULFATE 2 MG/ML CPJ (NOT FOR IM USE) IV PRN ×4 (05:00→20:32)
[2016-08-23] MEDS: PIPERACILLIN/TAZ 3.375G PREMIX 50 ML IV SCH ×3 (05:06→21:45)
[2016-08-23 06:51] LABS: BASOPHILS % 0.9 % (0.0-2.0); EOSINOPHILS % 7.5 % (0.0-5.0); HEMATOCRIT. 30.7 % (42.0-52.0); HEMOGLOBIN. 10.1 g/dL (14.0-18.0); LYMPHOCYTES % 8.5 % (20.0-50.0); MEAN CORPUSCULAR HEMOGLOBIN 28.9 pg (28.0-32.0); MEAN CORPUSCULAR VOLUME 87.4 fL (80.0-94.0); MEAN PLATELET VOLUME 7.4 fl (7.4-10.4); MONOCYTES % 12.7 % (2.0-8.0); NEUTROPHILS % 70.4 % (40.0-76.0); PLATELET 630 x1000/uL (130-400); RED BLOOD CELL COUNT 3.51 mill/uL (4.7-6.1); RED CELL DISTRIBUTION WIDTH 17.7 % (11.6-14.6); WHITE BLOOD COUNT 15.3 x1000/uL (4.5-11.0)
[2016-08-23] MEDS: BLOOD SUGAR DIAGNOSTIC STRIP TEST SCH ×4 (07:04→21:44)
[2016-08-23] MEDS: INSULIN LISPRO 100 UNITS/ML SUBCUT SCH ×4 (07:05→21:43)
[2016-08-23 07:14] LABS: ANION GAP 13; CARBON DIOXIDE 25 mEq/L (21-32); CHLORIDE 101 mEq/L (98-107); INDEX HEMOLYSI 1 (1-3); INDEX ICTERIC 1 (1-4); INDEX LIPEMIC 1 (1-3); UREA NITROGEN BLOOD 17 mg/dL (7-21); eGFR > 60 mL/min (>60)
[2016-08-23] MEDS: AMLODIPINE 5MG TABLET PO SCH (09:38)
[2016-08-23] MEDS: FERROUS SULFATE 325MG TABLET PO SCH ×2 (09:38→17:24)
[2016-08-23] MEDS: METOPROLOL TARTRATE 25MG TABLET PO SCH ×2 (09:39→20:31)
[2016-08-23] MEDS: BENZTROPINE MESYLATE 1MG TABLET PO SCH ×2 (09:39→17:24)
[2016-08-23] MEDS: DOCUSATE SODIUM 100MG CAPSULE PO SCH ×2 (09:39→17:24)
[2016-08-23] MEDS: VANCOMYCIN 500 MG PREMIX 100 ML IV SCH ×2 (09:39→20:31)
[2016-08-23] MEDS: GABAPENTIN 300MG CAPSULE PO SCH ×2 (09:39→17:24)
[2016-08-23] MEDS: ASPIRIN 81MG EC TABLET PO SCH (09:39)
[2016-08-23] MEDS: MICAFUNGIN 100 MG in SODIUM CHLORIDE 0.9% 100 ML IV SCH (09:40)
[2016-08-23] MEDS: SODIUM HYPOCHLORITE 0.125% 473ML SOLUTION TOP SCH (09:40)
[2016-08-23] MEDS: FLUPHENAZINE HCL 1 MG PO SCH (11:54)
[2016-08-23] MEDS: HYDROCODONE/ACETAMINOPHEN 10/325MG TABLET PO PRN (11:56)
[2016-08-23] MEDS: ENOXAPARIN 30MG/0.3ML SYR SUBCUT SCH (15:04)
[2016-08-23] MEDS: QUETIAPINE FUMARATE 50MG TABLET PO SCH (20:31)
[2016-08-23] MEDS: DIPHENHYDRAMINE 50MG CAPSULE PO SCH (20:31)
[2016-08-24] VITALS (7 sets, daily range): BP systolic 90–165; BP diastolic 65–84
[2016-08-24] MEDS: VANCOMYCIN HCL 1000 MG/20 ML ORAL PO SCH ×4 (01:26→17:45)
[2016-08-24] MEDS: MORPHINE SULFATE 2 MG/ML CPJ (NOT FOR IM USE) IV PRN ×4 (01:27→15:12)
[2016-08-24] MEDS: BLOOD SUGAR DIAGNOSTIC STRIP TEST SCH ×4 (06:17→21:35)
[2016-08-24] MEDS: INSULIN LISPRO 100 UNITS/ML SUBCUT SCH ×4 (07:48→22:18)
[2016-08-24] MEDS: GABAPENTIN 300MG CAPSULE PO SCH ×3 (09:00→17:00)
[2016-08-24] MEDS: DOCUSATE SODIUM 100MG CAPSULE PO SCH ×2 (09:00→17:45)
[2016-08-24] MEDS: BENZTROPINE MESYLATE 1MG TABLET PO SCH ×2 (09:00→17:45)
[2016-08-24] MEDS: MICAFUNGIN 100 MG in SODIUM CHLORIDE 0.9% 100 ML IV SCH (09:54)
[2016-08-24] MEDS: VANCOMYCIN 500 MG PREMIX 100 ML IV SCH ×2 (09:54→21:02)
[2016-08-24] MEDS: FERROUS SULFATE 325MG TABLET PO SCH ×2 (09:54→17:45)
[2016-08-24] MEDS: AMLODIPINE 5MG TABLET PO SCH (09:55)
[2016-08-24] MEDS: FLUPHENAZINE HCL 1 MG PO SCH (09:55)
[2016-08-24] MEDS: ASPIRIN 81MG EC TABLET PO SCH (09:55)
[2016-08-24] MEDS: METOPROLOL TARTRATE 25MG TABLET PO SCH ×2 (09:55→21:02)
[2016-08-24] MEDS: SODIUM HYPOCHLORITE 0.125% 473ML SOLUTION TOP SCH (09:58)
[2016-08-24 10:31] LABS: ANION GAP 15; CALCIUM 8.5 mg/dL (8.5-10.1); CARBON DIOXIDE 25 mEq/L (21-32); CHLORIDE 102 mEq/L (98-107); INDEX HEMOLYSI 1 (1-3); INDEX ICTERIC 1 (1-4); INDEX LIPEMIC 1 (1-3); UREA NITROGEN BLOOD 18 mg/dL (7-21); eGFR > 60 mL/min (>60)
[2016-08-24] MEDS: DIPHENHYDRAMINE 50MG/ML VIAL IV PRN (10:57)
[2016-08-24] MEDS: HYDROCODONE/ACETAMINOPHEN 10/325MG TABLET PO PRN (12:26)
[2016-08-24] MEDS: ENOXAPARIN 30MG/0.3ML SYR SUBCUT SCH (15:11)
[2016-08-24] MEDS: DIPHENHYDRAMINE 50MG CAPSULE PO SCH (21:01)
[2016-08-24] MEDS: QUETIAPINE FUMARATE 50MG TABLET PO SCH (21:02)
[2016-08-25] VITALS: BP 132/66
[2016-08-25] MEDS: VANCOMYCIN HCL 1000 MG/20 ML ORAL PO SCH ×4 (00:44→18:06)
[2016-08-25] MEDS: DIPHENHYDRAMINE 50MG/ML VIAL IV PRN ×2 (01:19→22:40)
[2016-08-25] MEDS: MORPHINE SULFATE 2 MG/ML CPJ (NOT FOR IM USE) IV PRN ×4 (03:23→20:27)
[2016-08-25 04:00] VITALS: BP 138/75
[2016-08-25 05:32] LABS: BASOPHILS % 1.1 % (0.0-2.0); EOSINOPHILS % 7.5 % (0.0-5.0); HEMATOCRIT. 31.4 % (42.0-52.0); LYMPHOCYTES % 13.2 % (20.0-50.0); MEAN CORPUSCULAR HEMOGLOBIN 27.8 pg (28.0-32.0); MEAN CORPUSCULAR HGB CONC 31.9 g/dL (31.0-37.0); MEAN CORPUSCULAR VOLUME 87.3 fL (80.0-94.0); MEAN PLATELET VOLUME 7.4 fl (7.4-10.4); MONOCYTES % 11.5 % (2.0-8.0); NEUTROPHILS % 66.7 % (40.0-76.0); PLATELET 665 x1000/uL (130-400); RED BLOOD CELL COUNT 3.59 mill/uL (4.7-6.1); RED CELL DISTRIBUTION WIDTH 17.6 % (11.6-14.6); WHITE BLOOD COUNT 15.2 x1000/uL (4.5-11.0)
[2016-08-25] MEDS: BLOOD SUGAR DIAGNOSTIC STRIP TEST SCH ×4 (06:28→21:00)
[2016-08-25 06:35] LABS: CHLORIDE 104 mEq/L (98-107); INDEX HEMOLYSI 1 (1-3); INDEX ICTERIC 1 (1-4); INDEX LIPEMIC 1 (1-3)
[2016-08-25 06:45] LABS: ANION GAP 15; CALCIUM 9.7 mg/dL (8.5-10.1); CARBON DIOXIDE 22 mEq/L (21-32); UREA NITROGEN BLOOD 24 mg/dL (7-21); eGFR > 60 mL/min (>60)
[2016-08-25] MEDS: INSULIN LISPRO 100 UNITS/ML SUBCUT SCH ×4 (07:50→21:00)
[2016-08-25 08:00] VITALS: BP 169/52
[2016-08-25] MEDS: MICAFUNGIN 100 MG in SODIUM CHLORIDE 0.9% 100 ML IV SCH (08:53)
[2016-08-25] MEDS: AMLODIPINE 5MG TABLET PO SCH (08:54)
[2016-08-25] MEDS: BENZTROPINE MESYLATE 1MG TABLET PO SCH ×2 (08:54→17:59)
[2016-08-25] MEDS: ASPIRIN 81MG EC TABLET PO SCH (08:54)
[2016-08-25] MEDS: GABAPENTIN 300MG CAPSULE PO SCH ×2 (08:54→17:00)
[2016-08-25] MEDS: METOPROLOL TARTRATE 25MG TABLET PO SCH ×2 (08:55→20:26)
[2016-08-25] MEDS: FERROUS SULFATE 325MG TABLET PO SCH ×2 (08:55→17:59)
[2016-08-25] MEDS: DOCUSATE SODIUM 100MG CAPSULE PO SCH ×2 (08:55→17:00)
[2016-08-25] MEDS: SODIUM HYPOCHLORITE 0.125% 473ML SOLUTION TOP SCH (09:00)
[2016-08-25] MEDS: FLUPHENAZINE HCL 1 MG PO SCH (09:00)
[2016-08-25 12:00] VITALS: BP 151/60
[2016-08-25] MEDS: VANCOMYCIN 500 MG PREMIX 100 ML IV SCH ×2 (12:24→20:25)
[2016-08-25] MEDS: ENOXAPARIN 30MG/0.3ML SYR SUBCUT SCH (14:30)
[2016-08-25 16:00] VITALS: BP 161/80
[2016-08-25 20:00] VITALS: BP 178/87
[2016-08-25] MEDS: DIPHENHYDRAMINE 50MG CAPSULE PO SCH (20:25)
[2016-08-25] MEDS: QUETIAPINE FUMARATE 50MG TABLET PO SCH (20:25)
[2016-08-26] MEDS: VANCOMYCIN HCL 1000 MG/20 ML ORAL PO SCH ×4 (01:05→17:44)
[2016-08-26 01:06] VITALS: BP 128/92
[2016-08-26] MEDS: MORPHINE SULFATE 2 MG/ML CPJ (NOT FOR IM USE) IV PRN ×5 (01:06→22:21)
[2016-08-26] MEDS: DIPHENHYDRAMINE 50MG/ML VIAL IV PRN ×2 (06:37→15:58)
[2016-08-26 06:40] VITALS: BP 163/62
[2016-08-26] MEDS: BLOOD SUGAR DIAGNOSTIC STRIP TEST SCH ×4 (07:13→21:00)
[2016-08-26] MEDS: INSULIN LISPRO 100 UNITS/ML SUBCUT SCH ×3 (07:50→23:00)
[2016-08-26 08:00] VITALS: BP 156/76
[2016-08-26] MEDS: DOCUSATE SODIUM 100MG CAPSULE PO SCH ×2 (09:00→15:50)
[2016-08-26] MEDS: SODIUM HYPOCHLORITE 0.125% 473ML SOLUTION TOP SCH (09:00)
[2016-08-26] MEDS: GABAPENTIN 300MG CAPSULE PO SCH ×2 (09:04→15:56)
[2016-08-26] MEDS: LACTOBACILLUS GG CAPSULE PO SCH (09:05)
[2016-08-26] MEDS: AMLODIPINE 5MG TABLET PO SCH (09:05)
[2016-08-26] MEDS: BENZTROPINE MESYLATE 1MG TABLET PO SCH ×2 (09:05→15:58)
[2016-08-26] MEDS: FERROUS SULFATE 325MG TABLET PO SCH ×2 (09:05→15:58)
[2016-08-26] MEDS: METOPROLOL TARTRATE 25MG TABLET PO SCH ×3 (09:06→22:20)
[2016-08-26] MEDS: ASPIRIN 81MG EC TABLET PO SCH (09:06)
[2016-08-26] MEDS: VANCOMYCIN 500 MG PREMIX 100 ML IV SCH ×2 (09:08→21:52)
[2016-08-26] MEDS: MICAFUNGIN 100 MG in SODIUM CHLORIDE 0.9% 100 ML IV SCH (09:08)
[2016-08-26] MEDS: FLUPHENAZINE HCL 1 MG PO SCH (09:08)
[2016-08-26 12:00] VITALS: BP 162/86
[2016-08-26] MEDS: ENOXAPARIN 30MG/0.3ML SYR SUBCUT SCH (12:53)
[2016-08-26 16:00] VITALS: BP 162/90
[2016-08-26 20:00] VITALS: BP 130/98
[2016-08-26] MEDS: DIPHENHYDRAMINE 50MG CAPSULE PO SCH (21:52)
[2016-08-26] MEDS: QUETIAPINE FUMARATE 50MG TABLET PO SCH (21:52)
[2016-08-27] VITALS: BP 147/77
[2016-08-27] MEDS: VANCOMYCIN HCL 1000 MG/20 ML ORAL PO SCH ×4 (00:27→18:09)
[2016-08-27 04:00] VITALS: BP 145/80
[2016-08-27] MEDS: MORPHINE SULFATE 2 MG/ML CPJ (NOT FOR IM USE) IV PRN ×2 (04:06→09:40)
[2016-08-27] MEDS: DIPHENHYDRAMINE 50MG/ML VIAL IV PRN ×3 (05:13→21:26)
[2016-08-27] MEDS: ACETAMINOPHEN 325MG TABLET PO PRN (06:39)
[2016-08-27] MEDS: BLOOD SUGAR DIAGNOSTIC STRIP TEST SCH ×4 (06:43→21:19)
[2016-08-27] MEDS: INSULIN LISPRO 100 UNITS/ML SUBCUT SCH ×4 (07:50→21:00)
[2016-08-27 08:00] VITALS: BP 148/77
[2016-08-27] MEDS: GABAPENTIN 300MG CAPSULE PO SCH ×2 (09:00→17:00)
[2016-08-27] MEDS: MICAFUNGIN 100 MG in SODIUM CHLORIDE 0.9% 100 ML IV SCH (09:31)
[2016-08-27] MEDS: FERROUS SULFATE 325MG TABLET PO SCH ×2 (09:35→17:26)
[2016-08-27] MEDS: DOCUSATE SODIUM 100MG CAPSULE PO SCH ×2 (09:35→17:00)
[2016-08-27] MEDS: ASPIRIN 81MG EC TABLET PO SCH (09:36)
[2016-08-27] MEDS: AMLODIPINE 5MG TABLET PO SCH (09:36)
[2016-08-27] MEDS: FLUPHENAZINE HCL 1 MG PO SCH (09:37)
[2016-08-27] MEDS: BENZTROPINE MESYLATE 1MG TABLET PO SCH ×2 (09:37→17:26)
[2016-08-27] MEDS: LACTOBACILLUS GG CAPSULE PO SCH (09:37)
[2016-08-27] MEDS: METOPROLOL TARTRATE 25MG TABLET PO SCH ×2 (09:37→21:06)
[2016-08-27] MEDS: VANCOMYCIN 500 MG PREMIX 100 ML IV SCH ×2 (10:29→21:05)
[2016-08-27] MEDS: SODIUM HYPOCHLORITE 0.125% 473ML SOLUTION TOP SCH (10:33)
[2016-08-27 11:46] LABS: BASOPHILS % 0.5 % (0.0-2.0); EOSINOPHILS % 5.1 % (0.0-5.0); HEMATOCRIT. 30.9 % (42.0-52.0); HEMOGLOBIN. 10.2 g/dL (14.0-18.0); LYMPHOCYTES % 12.6 % (20.0-50.0); MEAN CORPUSCULAR HEMOGLOBIN 28.7 pg (28.0-32.0); MEAN CORPUSCULAR HGB CONC 32.9 g/dL (31.0-37.0); MEAN CORPUSCULAR VOLUME 87.3 fL (80.0-94.0); MONOCYTES % 11.8 % (2.0-8.0); PLATELET 587 x1000/uL (130-400); RED BLOOD CELL COUNT 3.54 mill/uL (4.7-6.1); RED CELL DISTRIBUTION WIDTH 17.8 % (11.6-14.6); WHITE BLOOD COUNT 13.9 x1000/uL (4.5-11.0)
[2016-08-27 12:00] VITALS: BP 138/79
[2016-08-27] MEDS: ENOXAPARIN 30MG/0.3ML SYR SUBCUT SCH (14:48)
[2016-08-27] MEDS: IBUPROFEN 600MG TABLET PO PRN (15:05)
[2016-08-27 16:00] VITALS: BP 148/89
[2016-08-27 20:00] VITALS: BP 152/64
[2016-08-27] MEDS: DIPHENHYDRAMINE 50MG CAPSULE PO SCH (21:06)
[2016-08-27] MEDS: QUETIAPINE FUMARATE 50MG TABLET PO SCH (21:06)
[2016-08-28] VITALS (7 sets, daily range): BP systolic 107–186; BP diastolic 56–93
[2016-08-28] MEDS: ACETAMINOPHEN 325MG TABLET PO PRN ×2 (01:06→08:20)
[2016-08-28] MEDS: DIPHENHYDRAMINE 50MG/ML VIAL IV PRN (03:00)
[2016-08-28] MEDS: VANCOMYCIN HCL 1000 MG/20 ML ORAL PO SCH ×4 (06:00→18:37)
[2016-08-28] MEDS: BLOOD SUGAR DIAGNOSTIC STRIP TEST SCH ×4 (06:22→21:52)
[2016-08-28] MEDS: INSULIN LISPRO 100 UNITS/ML SUBCUT SCH ×4 (07:00→21:00)
[2016-08-28] MEDS: ASPIRIN 81MG EC TABLET PO SCH (08:20)
[2016-08-28] MEDS: BENZTROPINE MESYLATE 1MG TABLET PO SCH ×2 (08:20→16:36)
[2016-08-28] MEDS: FLUPHENAZINE HCL 1 MG PO SCH (08:21)
[2016-08-28] MEDS: METOPROLOL TARTRATE 25MG TABLET PO SCH ×2 (08:21→21:52)
[2016-08-28] MEDS: FERROUS SULFATE 325MG TABLET PO SCH ×2 (08:21→16:36)
[2016-08-28] MEDS: LACTOBACILLUS GG CAPSULE PO SCH (08:22)
[2016-08-28] MEDS: AMLODIPINE 5MG TABLET PO SCH (08:22)
[2016-08-28] MEDS: VANCOMYCIN 500 MG PREMIX 100 ML IV SCH ×2 (08:22→21:51)
[2016-08-28] MEDS: DOCUSATE SODIUM 100MG CAPSULE PO SCH ×2 (08:48→17:00)
[2016-08-28] MEDS: GABAPENTIN 300MG CAPSULE PO SCH ×2 (08:48→17:00)
[2016-08-28] MEDS: MORPHINE SULFATE 2 MG/ML CPJ (NOT FOR IM USE) IV PRN ×3 (09:50→21:54)
[2016-08-28] MEDS: ENOXAPARIN 30MG/0.3ML SYR SUBCUT SCH (14:29)
[2016-08-28] MEDS: DIPHENHYDRAMINE 50MG CAPSULE PO SCH (21:51)
[2016-08-28] MEDS: QUETIAPINE FUMARATE 50MG TABLET PO SCH (21:51)
[2016-08-29] VITALS (7 sets, daily range): BP systolic 123–168; BP diastolic 64–94
[2016-08-29 00:31] LABS: BASOPHILS % 1.3 % (0.0-2.0); EOSINOPHILS % 4.8 % (0.0-5.0); HEMATOCRIT. 33.5 % (42.0-52.0); LYMPHOCYTES % 17.1 % (20.0-50.0); MEAN CORPUSCULAR HEMOGLOBIN 28.6 pg (28.0-32.0); MEAN CORPUSCULAR HGB CONC 32.8 g/dL (31.0-37.0); MEAN CORPUSCULAR VOLUME 87.5 fL (80.0-94.0); MEAN PLATELET VOLUME 6.9 fl (7.4-10.4); MONOCYTES % 13.5 % (2.0-8.0); NEUTROPHILS % 63.3 % (40.0-76.0); PLATELET 612 x1000/uL (130-400); RED BLOOD CELL COUNT 3.83 mill/uL (4.7-6.1); RED CELL DISTRIBUTION WIDTH 17.3 % (11.6-14.6); WHITE BLOOD COUNT 12.2 x1000/uL (4.5-11.0)
[2016-08-29 00:33] LABS: CHLORIDE 97 mEq/L (98-107); INDEX HEMOLYSI 1 (1-3); INDEX ICTERIC 1 (1-4); INDEX LIPEMIC 1 (1-3)
[2016-08-29] MEDS: DIPHENHYDRAMINE 50MG/ML VIAL IV PRN ×2 (01:50→10:29)
[2016-08-29] MEDS: MORPHINE SULFATE 2 MG/ML CPJ (NOT FOR IM USE) IV PRN ×5 (01:50→23:00)
[2016-08-29 03:09] LABS: ANION GAP 15; CARBON DIOXIDE 24 mEq/L (21-32)
[2016-08-29 03:10] LABS: CALCIUM 9.4 mg/dL (8.5-10.1); UREA NITROGEN BLOOD 22 mg/dL (7-21); eGFR > 60 mL/min (>60)
[2016-08-29] MEDS: BLOOD SUGAR DIAGNOSTIC STRIP TEST SCH ×4 (06:54→21:00)
[2016-08-29] MEDS: INSULIN LISPRO 100 UNITS/ML SUBCUT SCH ×4 (07:50→21:00)
[2016-08-29] MEDS: GABAPENTIN 300MG CAPSULE PO SCH ×2 (09:00→17:00)
[2016-08-29] MEDS: DOCUSATE SODIUM 100MG CAPSULE PO SCH ×2 (09:00→17:00)
[2016-08-29] MEDS: FERROUS SULFATE 325MG TABLET PO SCH ×2 (09:23→18:03)
[2016-08-29] MEDS: VANCOMYCIN 500 MG PREMIX 100 ML IV SCH ×2 (09:23→21:45)
[2016-08-29] MEDS: LACTOBACILLUS GG CAPSULE PO SCH (09:24)
[2016-08-29] MEDS: ASPIRIN 81MG EC TABLET PO SCH (09:24)
[2016-08-29] MEDS: BENZTROPINE MESYLATE 1MG TABLET PO SCH ×2 (09:25→18:03)
[2016-08-29] MEDS: FLUPHENAZINE HCL 1 MG PO SCH (09:25)
[2016-08-29] MEDS: METOPROLOL TARTRATE 25MG TABLET PO SCH ×2 (09:25→21:45)
[2016-08-29] MEDS: AMLODIPINE 5MG TABLET PO SCH (09:25)
[2016-08-29] MEDS: ENOXAPARIN 30MG/0.3ML SYR SUBCUT SCH (14:40)
[2016-08-29] MEDS: DIPHENHYDRAMINE 50MG CAPSULE PO SCH (21:45)
[2016-08-29] MEDS: QUETIAPINE FUMARATE 50MG TABLET PO SCH (21:45)
[2016-08-30] MEDS: BLOOD SUGAR DIAGNOSTIC STRIP TEST SCH ×4 (06:56→21:00)
[2016-08-30] MEDS: INSULIN LISPRO 100 UNITS/ML SUBCUT SCH ×4 (07:50→22:07)
[2016-08-30] MEDS: DOCUSATE SODIUM 100MG CAPSULE PO SCH ×2 (09:00→16:20)
[2016-08-30] MEDS: GABAPENTIN 300MG CAPSULE PO SCH ×2 (09:00→16:20)
[2016-08-30 09:45] VITALS: BP 150/88
[2016-08-30] MEDS: VANCOMYCIN 500 MG PREMIX 100 ML IV SCH ×2 (10:00→22:08)
[2016-08-30] MEDS: FERROUS SULFATE 325MG TABLET PO SCH ×2 (10:01→16:21)
[2016-08-30] MEDS: BENZTROPINE MESYLATE 1MG TABLET PO SCH ×2 (10:02→16:21)
[2016-08-30] MEDS: LACTOBACILLUS GG CAPSULE PO SCH (10:02)
[2016-08-30] MEDS: ASPIRIN 81MG EC TABLET PO SCH (10:02)
[2016-08-30] MEDS: METOPROLOL TARTRATE 25MG TABLET PO SCH ×2 (10:03→22:05)
[2016-08-30] MEDS: FLUPHENAZINE HCL 1 MG PO SCH (10:04)
[2016-08-30] MEDS: AMLODIPINE 5MG TABLET PO SCH (10:04)
[2016-08-30] MEDS: MORPHINE SULFATE 2 MG/ML CPJ (NOT FOR IM USE) IV PRN ×3 (10:06→22:05)
[2016-08-30] MEDS: DIPHENHYDRAMINE 50MG/ML VIAL IV PRN ×2 (10:20→23:15)
[2016-08-30 12:00] VITALS: BP 109/82
[2016-08-30] MEDS: ENOXAPARIN 30MG/0.3ML SYR SUBCUT SCH (14:21)
[2016-08-30] MEDS ORDERED: AMLODIPINE 5MG TABLET PO NR (15:30)
[2016-08-30 16:00] VITALS: BP 96/64
[2016-08-30] MEDS ORDERED: CLONIDINE 0.1MG TABLET PO PRN (19:45)
[2016-08-30 20:00] VITALS: BP 138/72
[2016-08-30] MEDS: DIPHENHYDRAMINE 50MG CAPSULE PO SCH (22:05)
[2016-08-30] MEDS: QUETIAPINE FUMARATE 50MG TABLET PO SCH (22:05)
[2016-08-31] VITALS: BP 135/65
[2016-08-31] MEDS: MORPHINE SULFATE 2 MG/ML CPJ (NOT FOR IM USE) IV PRN ×4 (02:24→21:23)
[2016-08-31 04:00] VITALS: BP 153/77
[2016-08-31] MEDS: IBUPROFEN 600MG TABLET PO PRN ×2 (04:15→23:43)
[2016-08-31] MEDS: BLOOD SUGAR DIAGNOSTIC STRIP TEST SCH ×4 (06:48→21:24)
[2016-08-31] MEDS: INSULIN LISPRO 100 UNITS/ML SUBCUT SCH ×4 (07:50→21:00)
[2016-08-31 08:00] VITALS: BP 126/62
[2016-08-31] MEDS: DOCUSATE SODIUM 100MG CAPSULE PO SCH ×2 (08:36→17:00)
[2016-08-31] MEDS: GABAPENTIN 300MG CAPSULE PO SCH ×2 (08:36→17:00)
[2016-08-31] MEDS: VANCOMYCIN 500 MG PREMIX 100 ML IV SCH ×2 (08:59→20:59)
[2016-08-31] MEDS: FERROUS SULFATE 325MG TABLET PO SCH ×2 (09:00→17:33)
[2016-08-31] MEDS: LACTOBACILLUS GG CAPSULE PO SCH (09:00)
[2016-08-31] MEDS: AMLODIPINE 10MG TABLET PO SCH (09:00)
[2016-08-31] MEDS: DIPHENHYDRAMINE 50MG/ML VIAL IV PRN (09:01)
[2016-08-31] MEDS: ASPIRIN 81MG EC TABLET PO SCH (09:01)
[2016-08-31] MEDS: METOPROLOL TARTRATE 25MG TABLET PO SCH ×2 (09:01→20:59)
[2016-08-31] MEDS: BENZTROPINE MESYLATE 1MG TABLET PO SCH ×2 (09:01→17:33)
[2016-08-31] MEDS: FLUPHENAZINE HCL 1 MG PO SCH (09:01)
[2016-08-31 12:00] VITALS: BP 123/64
[2016-08-31] MEDS: ENOXAPARIN 30MG/0.3ML SYR SUBCUT SCH (13:48)
[2016-08-31 16:00] VITALS: BP 149/71
[2016-08-31 20:00] VITALS: BP 150/74
[2016-08-31] MEDS: DIPHENHYDRAMINE 50MG CAPSULE PO SCH (20:59)
[2016-08-31] MEDS: QUETIAPINE FUMARATE 50MG TABLET PO SCH (20:59)
[2016-09-01] VITALS: BP 122/65
[2016-09-01 04:00] VITALS: BP 135/63
[2016-09-01] MEDS: MORPHINE SULFATE 2 MG/ML CPJ (NOT FOR IM USE) IV PRN ×4 (04:36→17:43)
[2016-09-01 06:49] LABS: ANION GAP 16; CARBON DIOXIDE 21 mEq/L (21-32); CHLORIDE 102 mEq/L (98-107); INDEX HEMOLYSI 1 (1-3); INDEX ICTERIC 1 (1-4); INDEX LIPEMIC 1 (1-3); UREA NITROGEN BLOOD 37 mg/dL (7-21); eGFR > 60 mL/min (>60)
[2016-09-01] MEDS: INSULIN LISPRO 100 UNITS/ML SUBCUT SCH ×4 (07:50→21:00)
[2016-09-01 08:00] VITALS: BP 161/92
[2016-09-01] MEDS: BLOOD SUGAR DIAGNOSTIC STRIP TEST SCH ×4 (08:19→21:00)
[2016-09-01] MEDS: DOCUSATE SODIUM 100MG CAPSULE PO SCH ×2 (09:00→17:00)
[2016-09-01] MEDS: LACTOBACILLUS GG CAPSULE PO SCH (09:00)
[2016-09-01] MEDS: GABAPENTIN 300MG CAPSULE PO SCH ×2 (09:00→17:00)
[2016-09-01] MEDS: FERROUS SULFATE 325MG TABLET PO SCH ×2 (09:15→17:43)
[2016-09-01] MEDS: AMLODIPINE 10MG TABLET PO SCH (09:16)
[2016-09-01] MEDS: BENZTROPINE MESYLATE 1MG TABLET PO SCH ×2 (09:16→17:43)
[2016-09-01] MEDS: ASPIRIN 81MG EC TABLET PO SCH (09:17)
[2016-09-01] MEDS: METOPROLOL TARTRATE 25MG TABLET PO SCH ×2 (09:17→20:54)
[2016-09-01] MEDS: VANCOMYCIN 500 MG PREMIX 100 ML IV SCH ×2 (10:18→21:39)
[2016-09-01] MEDS: FLUPHENAZINE HCL 1 MG PO SCH (10:19)
[2016-09-01 12:00] VITALS: BP 140/72
[2016-09-01] MEDS: DIPHENHYDRAMINE 50MG/ML VIAL IV PRN ×2 (13:16→20:54)
[2016-09-01] MEDS: ENOXAPARIN 30MG/0.3ML SYR SUBCUT SCH (13:19)
[2016-09-01 16:00] VITALS: BP 154/59
[2016-09-01] MEDS: QUETIAPINE FUMARATE 50MG TABLET PO SCH (20:54)
[2016-09-01] MEDS: DIPHENHYDRAMINE 50MG CAPSULE PO SCH (21:00)
[2016-09-02] VITALS (13 sets, daily range): BP systolic 105–197; BP diastolic 67–101
[2016-09-02] MEDS: MORPHINE SULFATE 2 MG/ML CPJ (NOT FOR IM USE) IV PRN ×5 (00:23→20:56)
[2016-09-02] MEDS: BLOOD SUGAR DIAGNOSTIC STRIP TEST SCH ×4 (06:03→21:00)
[2016-09-02] MEDS: INSULIN LISPRO 100 UNITS/ML SUBCUT SCH ×4 (07:40→21:21)
[2016-09-02] MEDS: FLUPHENAZINE HCL 1 MG PO SCH (09:00)
[2016-09-02] MEDS: VANCOMYCIN 500 MG PREMIX 100 ML IV SCH ×2 (09:00→11:42)
[2016-09-02] MEDS: GABAPENTIN 300MG CAPSULE PO SCH ×2 (09:00→17:00)
[2016-09-02] MEDS: BENZTROPINE MESYLATE 1MG TABLET PO SCH ×2 (09:00→17:00)
[2016-09-02] MEDS: DOCUSATE SODIUM 100MG CAPSULE PO SCH ×2 (09:00→17:00)
[2016-09-02] MEDS: ASPIRIN 81MG EC TABLET PO SCH (09:00)
[2016-09-02] MEDS: FERROUS SULFATE 325MG TABLET PO SCH ×2 (09:00→17:00)
[2016-09-02] MEDS: AMLODIPINE 10MG TABLET PO SCH (09:00)
[2016-09-02] MEDS: LACTOBACILLUS GG CAPSULE PO SCH (09:00)
[2016-09-02] MEDS: METOPROLOL TARTRATE 25MG TABLET PO SCH ×2 (10:32→20:51)
[2016-09-02] MEDS ORDERED: FENTANYL CITRATE/PF 50MCG/ML 2ML VIAL IV ONE (10:45)
[2016-09-02] MEDS ORDERED: IOHEXOL-300 100 ML BOTTLE ONE (10:54)
[2016-09-02] MEDS ORDERED: SODIUM CHLORIDE 0.9% 10ML VIAL ONE (10:54)
[2016-09-02] MEDS: DIPHENHYDRAMINE 50MG/ML VIAL IV PRN ×3 (12:24→21:20)
[2016-09-02] MEDS: ENOXAPARIN 30MG/0.3ML SYR SUBCUT SCH (17:31)
[2016-09-02] MEDS: DIPHENHYDRAMINE 50MG CAPSULE PO SCH ×2 (20:51→21:00)
[2016-09-02] MEDS: CLONIDINE 0.1MG TABLET PO PRN (20:52)
[2016-09-02] MEDS: QUETIAPINE FUMARATE 50MG TABLET PO SCH (20:52)
[2016-09-03] VITALS: BP 100/49
[2016-09-03] MEDS: ACETAMINOPHEN 325MG TABLET PO PRN (01:10)
[2016-09-03 04:00] VITALS: BP 99/50
[2016-09-03] MEDS: MORPHINE SULFATE 2 MG/ML CPJ (NOT FOR IM USE) IV PRN ×4 (05:51→23:18)
[2016-09-03] MEDS: BLOOD SUGAR DIAGNOSTIC STRIP TEST SCH ×4 (06:41→21:17)
[2016-09-03] MEDS: INSULIN LISPRO 100 UNITS/ML SUBCUT SCH ×4 (07:50→21:00)
[2016-09-03 08:00] VITALS: BP 131/69
[2016-09-03] MEDS: GABAPENTIN 300MG CAPSULE PO SCH ×3 (09:00→17:00)
[2016-09-03] MEDS: ASPIRIN 81MG EC TABLET PO SCH (09:00)
[2016-09-03] MEDS: AMLODIPINE 10MG TABLET PO SCH (09:00)
[2016-09-03] MEDS: LACTOBACILLUS GG CAPSULE PO SCH ×2 (09:00→09:25)
[2016-09-03] MEDS: DOCUSATE SODIUM 100MG CAPSULE PO SCH ×3 (09:00→17:00)
[2016-09-03] MEDS: FLUPHENAZINE HCL 1 MG PO SCH (09:25)
[2016-09-03] MEDS: FERROUS SULFATE 325MG TABLET PO SCH ×2 (09:25→18:27)
[2016-09-03] MEDS: BENZTROPINE MESYLATE 1MG TABLET PO SCH ×2 (09:25→17:00)
[2016-09-03] MEDS: METOPROLOL TARTRATE 25MG TABLET PO SCH ×2 (09:26→21:11)
[2016-09-03 12:00] VITALS: BP 137/74
[2016-09-03] MEDS: DIPHENHYDRAMINE 50MG/ML VIAL IV PRN ×2 (13:03→19:00)
[2016-09-03] MEDS: DEXTROSE 50% WATER 50ML SYRINGE IV PRN (13:15)
[2016-09-03] MEDS: ENOXAPARIN 30MG/0.3ML SYR SUBCUT SCH (14:00)
[2016-09-03 16:00] VITALS: BP 119/63
[2016-09-03 16:31] LABS: CLARITY URINE CLOUDY (CLEAR); COLOR URINE RED (YELLOW); GLUCOSE URINE TRACE (NEGATIVE); KETONES URINE NEGATIVE (NEGATIVE); LEUKOCYTE ESTERASE URINE 2+ (NEGATIVE); NITRITE URINE NEGATIVE (NEGATIVE); OCCULT BLOOD URINE 3+ (NEGATIVE); PH URINE 5.5 (4.5-8.0); PROTEIN URINE 3+ (NEGATIVE); UROBILINOGEN URINE 0.2 E.U./dL (0.2-1.0)
[2016-09-03 19:14] LABS: BACTERIA URINE 1+; RBC URINE TNTC /hpf (0-2); SQUAMOUS EPITHELIAL CELL URINE FEW /lpf (RARE/1+)
[2016-09-03 20:00] VITALS: BP 140/67
[2016-09-03] MEDS: DIPHENHYDRAMINE 50MG CAPSULE PO SCH (21:11)
[2016-09-03] MEDS: QUETIAPINE FUMARATE 50MG TABLET PO SCH (21:11)
[2016-09-04] VITALS: BP 123/48
[2016-09-04] MEDS: DIPHENHYDRAMINE 50MG/ML VIAL IV PRN ×3 (02:50→16:48)
[2016-09-04 04:00] VITALS: BP 161/59
[2016-09-04] MEDS: MORPHINE SULFATE 2 MG/ML CPJ (NOT FOR IM USE) IV PRN ×4 (06:05→20:27)
[2016-09-04] MEDS: BLOOD SUGAR DIAGNOSTIC STRIP TEST SCH ×4 (07:26→20:27)
[2016-09-04] MEDS: INSULIN LISPRO 100 UNITS/ML SUBCUT SCH ×4 (07:26→20:34)
[2016-09-04] MEDS: METOPROLOL TARTRATE 25MG TABLET PO SCH ×2 (07:57→20:21)
[2016-09-04] MEDS: LACTOBACILLUS GG CAPSULE PO SCH (07:57)
[2016-09-04] MEDS: FERROUS SULFATE 325MG TABLET PO SCH ×2 (07:57→17:25)
[2016-09-04] MEDS: DOCUSATE SODIUM 100MG CAPSULE PO SCH ×3 (07:57→17:00)
[2016-09-04] MEDS: BENZTROPINE MESYLATE 1MG TABLET PO SCH ×2 (07:57→17:00)
[2016-09-04] MEDS: AMLODIPINE 10MG TABLET PO SCH (07:58)
[2016-09-04] MEDS: GABAPENTIN 300MG CAPSULE PO SCH ×3 (07:58→17:00)
[2016-09-04] MEDS: ASPIRIN 81MG EC TABLET PO SCH (07:58)
[2016-09-04] MEDS: FLUPHENAZINE HCL 1 MG PO SCH (07:58)
[2016-09-04 08:00] VITALS: BP 161/72
[2016-09-04 12:00] VITALS: BP 147/66
[2016-09-04 12:09] LABS: BASOPHILS % 0.7 % (0.0-2.0); EOSINOPHILS % 4.7 % (0.0-5.0); HEMATOCRIT. 35.1 % (42.0-52.0); HEMOGLOBIN. 11.4 g/dL (14.0-18.0); LYMPHOCYTES % 8.8 % (20.0-50.0); MEAN CORPUSCULAR HEMOGLOBIN 28.7 pg (28.0-32.0); MEAN CORPUSCULAR HGB CONC 32.6 g/dL (31.0-37.0); MONOCYTES % 13.2 % (2.0-8.0); NEUTROPHILS % 72.6 % (40.0-76.0); PLATELET 531 x1000/uL (130-400); RED BLOOD CELL COUNT 3.99 mill/uL (4.7-6.1); RED CELL DISTRIBUTION WIDTH 16.8 % (11.6-14.6); WHITE BLOOD COUNT 16.9 x1000/uL (4.5-11.0)
[2016-09-04] MEDS: ENOXAPARIN 30MG/0.3ML SYR SUBCUT SCH (14:26)
[2016-09-04 16:00] VITALS: BP 164/87
[2016-09-04] MEDS: CLONIDINE 0.1MG TABLET PO PRN (17:26)
[2016-09-04] MEDS: DEXTROSE 50% WATER 50ML SYRINGE IV PRN (17:31)
[2016-09-04] MEDS: CEFTRIAXONE 1 G PREMIX 50 ML IV SCH (17:49)
[2016-09-04 20:00] VITALS: BP 101/69
[2016-09-04] MEDS: DIPHENHYDRAMINE 50MG CAPSULE PO SCH (20:25)
[2016-09-04] MEDS: QUETIAPINE FUMARATE 50MG TABLET PO SCH (20:25)
[2016-09-05] VITALS: BP 154/74
[2016-09-05] MEDS: MORPHINE SULFATE 2 MG/ML CPJ (NOT FOR IM USE) IV PRN ×6 (00:01→21:13)
[2016-09-05 04:16] VITALS: BP 139/67
[2016-09-05] MEDS: BLOOD SUGAR DIAGNOSTIC STRIP TEST SCH ×4 (05:58→21:21)
[2016-09-05 08:00] VITALS: BP 130/71
[2016-09-05] MEDS: GABAPENTIN 300MG CAPSULE PO SCH ×2 (09:01→17:33)
[2016-09-05] MEDS: FERROUS SULFATE 325MG TABLET PO SCH ×2 (09:01→17:33)
[2016-09-05] MEDS: LACTOBACILLUS GG CAPSULE PO SCH (09:01)
[2016-09-05] MEDS: BENZTROPINE MESYLATE 1MG TABLET PO SCH ×2 (09:01→17:42)
[2016-09-05] MEDS: ASPIRIN 81MG EC TABLET PO SCH (09:01)
[2016-09-05] MEDS: FLUPHENAZINE HCL 1 MG PO SCH (09:02)
[2016-09-05] MEDS: METOPROLOL TARTRATE 25MG TABLET PO SCH ×2 (09:03→21:12)
[2016-09-05] MEDS: AMLODIPINE 10MG TABLET PO SCH (09:03)
[2016-09-05] MEDS: DOCUSATE SODIUM 100MG CAPSULE PO SCH ×2 (09:03→17:33)
[2016-09-05] MEDS: INSULIN LISPRO 100 UNITS/ML SUBCUT SCH ×4 (09:07→21:00)
[2016-09-05 12:00] VITALS: BP 149/69
[2016-09-05] MEDS: ENOXAPARIN 30MG/0.3ML SYR SUBCUT SCH (13:57)
[2016-09-05 16:00] VITALS: BP 131/86
[2016-09-05] MEDS: CEFTRIAXONE 1 G PREMIX 50 ML IV SCH (17:33)
[2016-09-05 20:00] VITALS: BP 145/69
[2016-09-05] MEDS: QUETIAPINE FUMARATE 50MG TABLET PO SCH (21:12)
[2016-09-05] MEDS: DIPHENHYDRAMINE 50MG CAPSULE PO SCH (21:12)
[2016-09-05] MEDS: DIPHENHYDRAMINE 50MG/ML VIAL IV PRN ×2 (22:17)
[2016-09-05 23:11] LABS: BASOPHILS % 1.2 % (0.0-2.0); EOSINOPHILS % 5.9 % (0.0-5.0); HEMATOCRIT. 31.5 % (42.0-52.0); HEMOGLOBIN. 10.6 g/dL (14.0-18.0); LYMPHOCYTES % 16.3 % (20.0-50.0); MEAN CORPUSCULAR HEMOGLOBIN 29.5 pg (28.0-32.0); MEAN CORPUSCULAR HGB CONC 33.5 g/dL (31.0-37.0); MEAN PLATELET VOLUME 7.3 fl (7.4-10.4); MONOCYTES % 12.5 % (2.0-8.0); NEUTROPHILS % 64.1 % (40.0-76.0); PLATELET 535 x1000/uL (130-400); RED BLOOD CELL COUNT 3.58 mill/uL (4.7-6.1); RED CELL DISTRIBUTION WIDTH 16.4 % (11.6-14.6); WHITE BLOOD COUNT 12.4 x1000/uL (4.5-11.0)
[2016-09-05 23:21] LABS: ANION GAP 14; CALCIUM 8.8 mg/dL (8.5-10.1); CARBON DIOXIDE 25 mEq/L (21-32); CHLORIDE 100 mEq/L (98-107); INDEX HEMOLYSI 1 (1-3); INDEX ICTERIC 1 (1-4); INDEX LIPEMIC 1 (1-3); UREA NITROGEN BLOOD 21 mg/dL (7-21); eGFR > 60 mL/min (>60)
[2016-09-06] VITALS (7 sets, daily range): BP systolic 115–153; BP diastolic 57–93
[2016-09-06] MEDS: MORPHINE SULFATE 2 MG/ML CPJ (NOT FOR IM USE) IV PRN ×5 (01:13→21:07)
[2016-09-06] MEDS: DIPHENHYDRAMINE 50MG/ML VIAL IV PRN ×3 (05:01→21:06)
[2016-09-06] MEDS: BLOOD SUGAR DIAGNOSTIC STRIP TEST SCH ×4 (06:36→20:57)
[2016-09-06] MEDS: INSULIN LISPRO 100 UNITS/ML SUBCUT SCH ×4 (07:50→21:00)
[2016-09-06] MEDS: DOCUSATE SODIUM 100MG CAPSULE PO SCH ×2 (09:00→17:13)
[2016-09-06] MEDS: GABAPENTIN 300MG CAPSULE PO SCH ×2 (10:27→17:12)
[2016-09-06] MEDS: LACTOBACILLUS GG CAPSULE PO SCH (10:27)
[2016-09-06] MEDS: AMLODIPINE 10MG TABLET PO SCH (10:27)
[2016-09-06] MEDS: BENZTROPINE MESYLATE 1MG TABLET PO SCH ×2 (10:27→17:13)
[2016-09-06] MEDS: FERROUS SULFATE 325MG TABLET PO SCH ×2 (10:27→17:14)
[2016-09-06] MEDS: METOPROLOL TARTRATE 25MG TABLET PO SCH ×2 (10:28→20:57)
[2016-09-06] MEDS: ASPIRIN 81MG EC TABLET PO SCH (10:28)
[2016-09-06] MEDS: FLUPHENAZINE HCL 1 MG PO SCH (10:28)
[2016-09-06] MEDS: ENOXAPARIN 30MG/0.3ML SYR SUBCUT SCH (13:22)
[2016-09-06] MEDS: CEFTRIAXONE 1 G PREMIX 50 ML IV SCH (17:14)
[2016-09-06 18:19] LABS: BASOPHILS % 0.2 % (0.0-2.0); EOSINOPHILS % 7.7 % (0.0-5.0); HEMATOCRIT. 30.9 % (42.0-52.0); HEMOGLOBIN. 10.1 g/dL (14.0-18.0); LYMPHOCYTES % 14.8 % (20.0-50.0); MEAN CORPUSCULAR HEMOGLOBIN 28.3 pg (28.0-32.0); MEAN CORPUSCULAR HGB CONC 32.7 g/dL (31.0-37.0); MEAN CORPUSCULAR VOLUME 86.4 fL (80.0-94.0); MEAN PLATELET VOLUME 7.4 fl (7.4-10.4); MONOCYTES % 13.2 % (2.0-8.0); NEUTROPHILS % 64.1 % (40.0-76.0); PLATELET 533 x1000/uL (130-400); RED BLOOD CELL COUNT 3.58 mill/uL (4.7-6.1); RED CELL DISTRIBUTION WIDTH 16.3 % (11.6-14.6)
[2016-09-06] MEDS: DIPHENHYDRAMINE 50MG CAPSULE PO SCH (20:57)
[2016-09-06] MEDS: QUETIAPINE FUMARATE 50MG TABLET PO SCH (20:57)
[2016-09-06] MEDS ORDERED: DEXTROSE 50% WATER 50ML SYRINGE IV PRN (23:45)
[2016-09-07] VITALS: BP 109/59
[2016-09-07] MEDS: MORPHINE SULFATE 2 MG/ML CPJ (NOT FOR IM USE) IV PRN ×5 (03:12→21:13)
[2016-09-07] MEDS: DIPHENHYDRAMINE 50MG/ML VIAL IV PRN ×4 (03:13→23:49)
[2016-09-07 04:00] VITALS: BP 130/76
[2016-09-07] MEDS: BLOOD SUGAR DIAGNOSTIC STRIP TEST SCH ×4 (06:50→21:00)
[2016-09-07] MEDS: INSULIN LISPRO 100 UNITS/ML SUBCUT SCH ×4 (07:23→21:00)
[2016-09-07 08:00] VITALS: BP 152/80
[2016-09-07] MEDS: LACTOBACILLUS GG CAPSULE PO SCH (08:43)
[2016-09-07] MEDS: FLUPHENAZINE HCL 1 MG PO SCH (08:43)
[2016-09-07] MEDS: ASPIRIN 81MG EC TABLET PO SCH (08:43)
[2016-09-07] MEDS: AMLODIPINE 10MG TABLET PO SCH (08:43)
[2016-09-07] MEDS: DOCUSATE SODIUM 100MG CAPSULE PO SCH ×2 (09:00→17:08)
[2016-09-07 12:00] VITALS: BP 150/81
[2016-09-07] MEDS: ENOXAPARIN 30MG/0.3ML SYR SUBCUT SCH (14:47)
[2016-09-07 16:00] VITALS: BP 152/74
[2016-09-07] MEDS: CEFTRIAXONE 1 G PREMIX 50 ML IV SCH (17:08)
[2016-09-07 20:00] VITALS: BP 139/90
[2016-09-08] VITALS: BP 144/85
[2016-09-08] MEDS: MORPHINE SULFATE 2 MG/ML CPJ (NOT FOR IM USE) IV PRN ×3 (01:18→09:42)
[2016-09-08 04:00] VITALS: BP 140/100
[2016-09-08] MEDS: BLOOD SUGAR DIAGNOSTIC STRIP TEST SCH ×2 (06:41→12:20)
[2016-09-08] MEDS: DIPHENHYDRAMINE 50MG/ML VIAL IV PRN ×2 (06:53→14:43)
[2016-09-08] MEDS: INSULIN LISPRO 100 UNITS/ML SUBCUT SCH ×2 (07:50→12:50)
[2016-09-08 08:00] VITALS: BP 153/84
[2016-09-08] MEDS: LACTOBACILLUS GG CAPSULE PO SCH (09:44)
[2016-09-08] MEDS: FLUPHENAZINE HCL 1 MG PO SCH (09:44)
[2016-09-08] MEDS: AMLODIPINE 10MG TABLET PO SCH (09:45)
[2016-09-08] MEDS: DOCUSATE SODIUM 100MG CAPSULE PO SCH (09:45)
[2016-09-08 12:00] VITALS: BP 82/51
[2016-09-08] MEDS: ENOXAPARIN 30MG/0.3ML SYR SUBCUT SCH (14:00)
[2016-09-08 16:00] VITALS: BP 155/98
[2016-09-08 16:33] VITALS: BP 155/98
== END 2016-09-08 18:01 | disposition hospice, inpatient (51) | DRG 710 ==
LOC: ER 09:49 → 6WST 12:28 → 5EST 08-10 15:21 → 5WST 08-15 18:33 → 6EST 08-22 12:33
PROVIDERS: ADMIT Internal Medicine; ATTEND Internal Medicine
PROC: 02HV33Z Insertion of Infusion Device into Superior Vena Cava, Percutaneous Approach (ICD-10-PCS; principal; 2016-08-12)
PROC: B548ZZA Ultrasonography of Superior Vena Cava, Guidance (ICD-10-PCS; 2016-08-12)
PROC: 0T25X0Z Change Drainage Device in Kidney, External Approach (ICD-10-PCS; 2016-08-15)
PROC: 0T9130Z Drainage of Left Kidney with Drainage Device, Percutaneous Approach (ICD-10-PCS; 2016-08-15)
PROC: 0T9030Z Drainage of Right Kidney with Drainage Device, Percutaneous Approach (ICD-10-PCS; 2016-09-02)
PROC: 0T25X0Z Change Drainage Device in Kidney, External Approach (ICD-10-PCS; 2016-09-02)
DX: A41.9 Sepsis, unspecified organism (principal); E43 Unspecified severe protein-calorie malnutrition; G82.50 Quadriplegia, unspecified; L89.152 Pressure ulcer of sacral region, stage 2; I11.0 Hypertensive heart disease with heart failure; A04.7 Enterocolitis due to Clostridium difficile; I42.9 Cardiomyopathy, unspecified; I50.40 Unspecified combined systolic (congestive) and diastolic (congestive) heart failure; R64 Cachexia; E87.1 Hypo-osmolality and hyponatremia; I45.10 Unspecified right bundle-branch block; J44.9 Chronic obstructive pulmonary disease, unspecified; N39.0 Urinary tract infection, site not specified; E11.9 Type 2 diabetes mellitus without complications; E88.09 Other disorders of plasma-protein metabolism, not elsewhere classified; F17.210 Nicotine dependence, cigarettes, uncomplicated; F20.9 Schizophrenia, unspecified; L98.8 Other specified disorders of the skin and subcutaneous tissue; R31.9 Hematuria, unspecified; Z89.611 Acquired absence of right leg above knee; Z89.612 Acquired absence of left leg above knee; Z93.6 Other artificial openings of urinary tract status; Z68.37 Body mass index [BMI] 37.0-37.9, adult; Z79.899 Other long term (current) drug therapy; Z86.14 Personal history of Methicillin resistant Staphylococcus aureus infection
CPT/HCPCS: 36415; 36569; 50432; 50435; 71010; 73552; 76937; 80048; 80053; 80061; 80202; 80305; 81001; 81003; 82550; 82553; 82962; 83735; 83880; 84484; 85025; 85610; 87040; 87077; 87086; 87186; 87493; 90686; 90732; 93005; 93306; 99285; A4216; A4565; A6261; C1725; C1729; C1769; C1893; J0696; J1200; J1650; J1815; J2248; J2270; J2405; J2543; J3370; J3490; J7030; J7040; J7050; J7060; J7620; P9047; Q0163; Q9967

== ENCOUNTER 2017-07-19 10:53 | Emergency (ER) | payer MEDICARE, MEDICAID ==
[~2017-07-19] VITALS: Ht 134.6 cm; Wt 50.0 kg
[~2017-07-19 10:53] MED LIST changes: +METO100T16 PO; -METO100T5 PO
[2017-07-19] MEDS ORDERED: SODIUM CHLORIDE 0.9% 1,000 ML IV ONE (11:34)
[2017-07-19 11:58] LABS: BASOPHILS % 0.5 % (0.0-2.0); EOSINOPHILS % 0.4 % (0.0-5.0); HEMATOCRIT. 40.7 % (42.0-52.0); HEMOGLOBIN. 13.6 g/dL (14.0-18.0); LYMPHOCYTES % 7.6 % (20.0-50.0); MEAN CORPUSCULAR HEMOGLOBIN 29.3 pg (28.0-32.0); MEAN CORPUSCULAR VOLUME 87.9 fL (80.0-94.0); MEAN PLATELET VOLUME 7.5 fl (7.4-10.4); MONOCYTES % 9.9 % (2.0-8.0); NEUTROPHILS % 81.6 % (40.0-76.0); PLATELET 379 x1000/uL (130-400); RED BLOOD CELL COUNT 4.63 mill/uL (4.7-6.1); RED CELL DISTRIBUTION WIDTH 16.6 % (11.6-14.6)
[2017-07-19 12:04] LABS: CHLORIDE 100 mEq/L (98-107)
[2017-07-19 12:10] LABS: ETHANOL BLOOD < 10 mg/dL
[2017-07-19 12:12] LABS: CARBAMAZEPINE < 0.5 ug/mL (4-12); PHENOBARBITAL < 2.1 ug/mL (15.0-40.0); VALPROIC ACID < 3.0 ug/mL (50-100)
[2017-07-19 15:47] LABS: CLARITY URINE CLOUDY (CLEAR); COLOR URINE YELLOW (YELLOW); KETONES URINE NEGATIVE (NEGATIVE); LEUKOCYTE ESTERASE URINE 3+ (NEGATIVE); NITRITE URINE NEGATIVE (NEGATIVE); OCCULT BLOOD URINE 3+ (NEGATIVE); PH URINE 6.5 (4.5-8.0); PROTEIN URINE 2+ (NEGATIVE); SPECIFIC GRAVITY URINE 1.016 (1.005-1.030)
[2017-07-19 16:10] LABS: *AMPHETAMINES SCREEN URINE NEGATIVE (NEGATIVE); *BARBITURATES SCREEN URINE NEGATIVE (NEGATIVE); *BENZODIAZEPINES SCREEN URINE NEGATIVE (NEGATIVE); *COCAINE SCREEN URINE PRESUMTIVE POSITIVE (NEGATIVE); CANNABINOID URINE SCREEN PRESUMTIVE POSITIVE (NEGATIVE); METHADONE URINE SCREEN NEGATIVE (NEGATIVE); OPIATES URINE SCREEN NEGATIVE (NEGATIVE); PHENCYCLIDINE URINE SCREEN NEGATIVE (NEGATIVE)
[2017-07-19 16:26] VITALS: BP 163/80
== END 2017-07-19 17:15 | disposition home or self-care (01) ==
LOC: ER 11:15
DX: R25.1 Tremor, unspecified (principal); G40.909 Epilepsy, unspecified, not intractable, without status epilepticus; J44.9 Chronic obstructive pulmonary disease, unspecified; F20.9 Schizophrenia, unspecified; R41.82 Altered mental status, unspecified; I50.9 Heart failure, unspecified; I11.0 Hypertensive heart disease with heart failure; Z79.899 Other long term (current) drug therapy
CPT/HCPCS: 36415; 70450; 80053; 80156; 80165; 80184; 80185; 80305; 81003; 82962; 84484; 85025; 87077; 87086; 87186; 93005; 96360; 96361; 99285; G0482; J7030

== ENCOUNTER 2018-09-11 13:59 | Emergency (ER) | payer MEDICARE, MEDICAID ==
[~2018-09-11] VITALS: Ht 121.9 cm; Wt 35.0 kg
[2018-09-11] MEDS ORDERED: SODIUM CHLORIDE 0.9% 1,000 ML IV ONE (14:46)
[2018-09-11] MEDS ORDERED: CEFTRIAXONE 1 G PREMIX 50 ML IV ONE (15:00)
[2018-09-11] MEDS ORDERED: METRONIDAZOLE 500 MG PREMIX 100 ML IV ONE (15:00)
[2018-09-11] MEDS ORDERED: AMOXICILLIN/POTASSIUM CLAVULANATE 875/125MG TAB PO ONE (16:30)
[2018-09-11 17:37] VITALS: BP 144/73
== END 2018-09-11 17:45 | disposition home or self-care (01) ==
LOC: ER 13:59 → CANBEDREQ 19:27
DX: R10.9 Unspecified abdominal pain (principal); T83.592A Infection and inflammatory reaction due to indwelling ureteral stent, initial encounter; B99.9 Unspecified infectious disease; Y82.8 Other medical devices associated with adverse incidents; Y92.9 Unspecified place or not applicable; F32.9 Major depressive disorder, single episode, unspecified; E11.9 Type 2 diabetes mellitus without complications; I10 Essential (primary) hypertension; F20.9 Schizophrenia, unspecified; Z74.01 Bed confinement status; Z89.512 Acquired absence of left leg below knee; Z89.511 Acquired absence of right leg below knee
CPT/HCPCS: 99283; J7030

== ENCOUNTER 2019-05-27 11:57 | Emergency (ER) | payer MEDICARE, MEDICAID ==
[~2019-05-27] VITALS: Ht 149.9 cm; Wt 59.0 kg
[2019-05-27 12:04] VITALS: BP 134/68
== END 2019-05-27 13:21 | disposition left against medical advice (07) ==
LOC: ER 11:57
DX: T83.038A Leakage of other urinary catheter, initial encounter (principal); Y92.89 Other specified places as the place of occurrence of the external cause
CPT/HCPCS: 99283

== ENCOUNTER 2019-08-04 22:40 | Emergency (ER) | payer MEDICARE, MEDICAID ==
[~2019-08-04] VITALS: Ht 121.9 cm; Wt 50.0 kg
[~2019-08-04 22:40] MED LIST changes: -FLUP1TAB MT; +FLUP1TAB8 MT
[2019-08-05 00:46] LABS: BASOPHILS % 0.9 % (0.0-2.0); EOSINOPHILS % 6.2 % (0.0-5.0); HEMATOCRIT. 37.5 % (42.0-52.0); LYMPHOCYTES % 26.8 % (20.0-50.0); MEAN CORPUSCULAR HEMOGLOBIN 30.6 pg (28.0-32.0); MEAN CORPUSCULAR VOLUME 88.3 fL (80.0-94.0); MEAN PLATELET VOLUME 7.8 fl (7.4-10.4); MONOCYTES % 13.2 % (2.0-8.0); NEUTROPHILS % 52.9 % (40.0-76.0); PLATELET 339 x1000/uL (130-400); RED BLOOD CELL COUNT 4.24 mill/uL (4.7-6.1); RED CELL DISTRIBUTION WIDTH 16.8 % (11.6-14.6)
[2019-08-05 00:52] LABS: CHLORIDE 110 mEq/L (98-107)
[2019-08-05 01:45] LABS: CLARITY URINE TURBID (CLEAR); COLOR URINE YELLOW (YELLOW); KETONES URINE NEGATIVE (NEGATIVE); LEUKOCYTE ESTERASE URINE 3+ (NEGATIVE); NITRITE URINE NEGATIVE (NEGATIVE); OCCULT BLOOD URINE 2+ (NEGATIVE); PROTEIN URINE 2+ (NEGATIVE); SPECIFIC GRAVITY URINE 1.007 (1.005-1.030); UROBILINOGEN URINE 0.2 E.U./dL (0.2-1.0)
[2019-08-05] MEDS ORDERED: HYDROCODONE/ACETAMINOPHEN 5/325MG TABLET PO ONE (06:00)
[2019-08-05 08:20] VITALS: BP 133/70
== END 2019-08-05 08:14 | disposition home or self-care (01) ==
LOC: ER 22:40
DX: N39.0 Urinary tract infection, site not specified (principal); Z46.6 Encounter for fitting and adjustment of urinary device; R30.0 Dysuria; E78.00 Pure hypercholesterolemia, unspecified; I10 Essential (primary) hypertension; Z98.890 Other specified postprocedural states; Z79.899 Other long term (current) drug therapy; Z89.612 Acquired absence of left leg above knee; Z89.611 Acquired absence of right leg above knee
CPT/HCPCS: 36415; 51702; 80048; 81003; 85025; 87077; 87186; 99285

== ENCOUNTER 2023-06-26 14:33 | Inpatient (IN) | payer MEDICARE, MEDICAID ==
[~2023-06-26] VITALS: Ht 175.3 cm; Wt 51.3 kg
[~2023-06-26 14:33] MED LIST changes: +ACET-3163 PO; -ALPR1TAB2 PO; +AMLO5TAB88 PO; +ASPI-1497 PO; +ATOR-2 MT; -BENZ1TAB7 PO; +BENZ1TAB79 PO; +BISA10SU62 RC; -DIPH25CA83 PO; +DIVA-75 PO; +DOCU250C69 PO; -ENAL20TA PO; +FEO RC; -FERR-63 PO; -FLUP1TAB8 MT; -GABA-290 PO; +HYDR-4009 PO; -IBUP-2029 PO; +MELA3TAB40 PO; -METO100T16 PO; +MOM PO; -NIFE90TA43 PO; +OMEP20TA23 PO; +POLY250017 MT; -QUET50TA21 PO; +RISP1 PO; +SENN-257 PO; +TOPUD PO; +TRAZ-251 MT
[2023-06-26 14:37] VITALS: O2SAT 96
[2023-06-26] MEDS: PIPERACILLIN/TAZO 3.375G/50ML 50 ML IV ONE (15:10)
[2023-06-26] MEDS: SODIUM CHLORIDE 0.9% 1000ML BAG (SEPSIS BOLUS) IV ONE (15:10)
[2023-06-26 16:06] LABS: BASOPHILS % 0.1 % (0.0-2.0); EOSINOPHILS % 0.4 % (0.0-5.0); HEMATOCRIT. 44.9 % (42.0-52.0); HEMOGLOBIN. 14.6 g/dL (14.0-18.0); LYMPHOCYTES % 8.5 % (20.0-50.0); MEAN CORPUSCULAR HEMOGLOBIN 30.5 pg (28.0-32.0); MEAN CORPUSCULAR HGB CONC 32.4 g/dL (31.0-37.0); MEAN CORPUSCULAR VOLUME 94.2 fL (80.0-94.0); MEAN PLATELET VOLUME 8.5 fl (7.4-10.4); MONOCYTES % 11.5 % (2.0-8.0); NEUTROPHILS % 79.5 % (40.0-76.0); PLATELET 265 x1000/uL (130-400); RED BLOOD CELL COUNT 4.77 mill/uL (4.7-6.1); RED CELL DISTRIBUTION WIDTH 15.4 % (11.6-14.6)
[2023-06-26 16:13] LABS: INR 1.1; PROTHROMBIN TIME 12.2 sec (9.6-11.0)
[2023-06-26 16:22] LABS: ALANINE AMINOTRANSFERASE 12 IU/L (10-49); ALBUMIN 3.5 g/dL (3.2-4.8); ASPARTATE AMINOTRANSFERASE 25 IU/L (<34); BILIRUBIN TOTAL 0.5 mg/dL (0.1-1.0); CALCIUM 8.7 mg/dL (8.7-10.4); CARBON DIOXIDE 20 mEq/L (21-32); CHLORIDE 107 mEq/L (98-107); CREATININE 0.8 mg/dL (0.6-1.3); GLUCOSE 109 mg/dL (70-105); POTASSIUM 3.8 mEq/L (3.5-5.1); PROTEIN TOTAL 7.8 g/dL (6.0-8.3); SODIUM 136 mEq/L (136-145); TROPONIN I HIGH SENSITIVITY 20 ng/L (3.0-53); UREA NITROGEN BLOOD 20 mg/dL (9-23)
[2023-06-26] MEDS ORDERED: CLONIDINE 0.1MG TABLET PO PRN (19:15)
[2023-06-26] MEDS ORDERED: ACETAMINOPHEN 325MG TABLET PO PRN (19:15)
[2023-06-26] MEDS ORDERED: DOCUSATE SODIUM 100MG CAPSULE PO PRN (19:15)
[2023-06-26] MEDS ORDERED: IPRATROPIUM/ALBUTEROL 0.5-3(2.5)MG/3ML NEB HHN PRN (19:15)
[2023-06-26] MEDS ORDERED: ONDANSETRON HCL 4MG/2ML INJ IV PRN (19:15)
[2023-06-26 19:27] LABS: CLARITY URINE CLOUDY (CLEAR); COLOR URINE YELLOW (YELLOW); GLUCOSE URINE NEGATIVE (NEGATIVE); KETONES URINE TRACE (NEGATIVE); LEUKOCYTE ESTERASE URINE 3+ (NEGATIVE); NITRITE URINE POSITIVE (NEGATIVE); OCCULT BLOOD URINE 3+ (NEGATIVE); PROTEIN URINE 1+ (NEGATIVE); SPECIFIC GRAVITY URINE 1.016 (1.005-1.030)
[2023-06-26 19:56] LABS: BACTERIA URINE 2+
[2023-06-26 19:57] LABS: RBC URINE TNTC /hpf (0-2); SQUAMOUS EPITHELIAL CELL URINE FEW /lpf (RARE/1+); TRIPLE PHOSPHATE CRYSTAL URINE 2+ /lpf; WBC URINE TNTC /hpf (0-2)
[2023-06-26] MEDS: MEROPENEM 1G/100ML 100 ML IV SCH (22:27)
[2023-06-27 00:30] VITALS: BP 85/54; PULSE 105; RESP 18; TEMP 97.9
[2023-06-27] MEDS: SODIUM CHLORIDE 0.9% 1000ML BAG (SEPSIS BOLUS) IV NR (03:01)
[2023-06-27 04:47] VITALS: BP 143/66; PULSE 85; RESP 18; TEMP 96.9
[2023-06-27 08:00] VITALS: BP 146/71; PULSE 102; RESP 18; TEMP 97.6
[2023-06-27] MEDS: ACETAMINOPHEN 325MG TABLET PO PRN (09:49)
[2023-06-27 12:00] VITALS: BP 145/70; PULSE 90; RESP 18; TEMP 98.2
[2023-06-27] MEDS: MEROPENEM 1G/100ML 100 ML IV SCH (14:55)
[2023-06-27 16:00] VITALS: BP 132/66; PULSE 88; RESP 18; TEMP 97.9
[2023-06-27 18:12] LABS: HEMATOCRIT. 40.7 % (42.0-52.0); HEMOGLOBIN. 13.6 g/dL (14.0-18.0); MEAN CORPUSCULAR HEMOGLOBIN 30.5 pg (28.0-32.0); MEAN CORPUSCULAR HGB CONC 33.5 g/dL (31.0-37.0); MEAN CORPUSCULAR VOLUME 91.1 fL (80.0-94.0); MEAN PLATELET VOLUME 9.3 fl (7.4-10.4); PLATELET 277 x1000/uL (130-400); RED BLOOD CELL COUNT 4.47 mill/uL (4.7-6.1)
[2023-06-27 18:13] LABS: DIFFERENTIAL COMMENT 1
[2023-06-27 18:26] LABS: CALCIUM 8.4 mg/dL (8.7-10.4); CARBON DIOXIDE 22 mEq/L (21-32); CHLORIDE 109 mEq/L (98-107); CREATININE 0.9 mg/dL (0.6-1.3); GLUCOSE 94 mg/dL (70-105); POTASSIUM 4.1 mEq/L (3.5-5.1); SODIUM 139 mEq/L (136-145); UREA NITROGEN BLOOD 19 mg/dL (9-23)
[2023-06-27 18:32] LABS: PLATELET ESTIMATE NORMAL
[2023-06-27 20:00] VITALS: BP 140/62; PULSE 96; RESP 18; TEMP 98.8
[2023-06-28] VITALS (7 sets, daily range): BP systolic 104–161; BP diastolic 51–90; PULSE 71–116; RESP 18–20; TEMP 97.3–98.2
[2023-06-28] MEDS: RISPERIDONE 1MG TABLET PO SCH (16:19)
[2023-06-28] MEDS: TRAZODONE HCL 50MG TABLET PO SCH (21:43)
[2023-06-28] MEDS: BENZTROPINE MESYLATE 0.5MG TABLET PO SCH (21:43)
[2023-06-28] MEDS: METOPROLOL TARTRATE 25MG TABLET PO SCH (21:45)
[2023-06-28] MEDS: ATORVASTATIN CALCIUM 40MG TABLET PO SCH (21:47)
[2023-06-29] VITALS: BP 132/47; PULSE 85; RESP 18; TEMP 97.6
[2023-06-29 04:00] VITALS: BP 133/58; PULSE 94; RESP 20; TEMP 97.9
[2023-06-29 07:03] LABS: HEMATOCRIT. 38.6 % (42.0-52.0); HEMOGLOBIN. 12.8 g/dL (14.0-18.0); MEAN CORPUSCULAR HEMOGLOBIN 30.7 pg (28.0-32.0); MEAN CORPUSCULAR HGB CONC 33.2 g/dL (31.0-37.0); MEAN CORPUSCULAR VOLUME 92.6 fL (80.0-94.0); MEAN PLATELET VOLUME 9.1 fl (7.4-10.4); PLATELET 232 x1000/uL (130-400); RED BLOOD CELL COUNT 4.17 mill/uL (4.7-6.1); RED CELL DISTRIBUTION WIDTH 15.1 % (11.6-14.6); WHITE BLOOD COUNT 26.1 x1000/uL (4.5-11.0)
[2023-06-29 07:04] LABS: CALCIUM 8.6 mg/dL (8.7-10.4); CARBON DIOXIDE 21 mEq/L (21-32); CHLORIDE 106 mEq/L (98-107); CHOLESTEROL 97 mg/dL (<200); CREATININE 0.9 mg/dL (0.6-1.3); GLUCOSE 112 mg/dL (70-105); HDL CHOLESTEROL 34 mg/dL (>55); LDL CHOLESTEROL 49 mg/dL (5-100); POTASSIUM 3.9 mEq/L (3.5-5.1); SODIUM 135 mEq/L (136-145); TRIGLYCERIDE 83 mg/dL (0-150); UREA NITROGEN BLOOD 13 mg/dL (9-23)
[2023-06-29] MEDS: OMEPRAZOLE 20MG CAPSULE EXTENDED RELEASE PO SCH (07:40)
[2023-06-29 07:59] LABS: DIFFERENTIAL COMMENT 1
[2023-06-29 08:00] VITALS: BP 128/58; PULSE 91; RESP 18; TEMP 98.6
[2023-06-29] MEDS: AMLODIPINE 5MG TABLET PO SCH (08:47)
[2023-06-29] MEDS: ASPIRIN 81MG EC TABLET PO SCH (08:47)
[2023-06-29] MEDS: DIVALPROEX SODIUM 250MG ER TABLET PO SCH (08:48)
[2023-06-29 12:21] VITALS: BP 133/84; PULSE 87; RESP 18; TEMP 98.6
[2023-06-29] MEDS ORDERED: BARIUM SULFATE 450ML ORAL SUSP PO SCH (14:00)
[2023-06-29] MEDS: MAGNESIUM 2 G PREMIX 50 ML IV NR (14:14)
[2023-06-29] MEDS: DIATR MEGLU/DIATRIZOATE SOLN 30ML PO SCH (14:18)
[2023-06-29 16:00] VITALS: BP 126/54; PULSE 88; RESP 20; TEMP 97.7
[2023-06-29 20:48] VITALS: BP 108/86; PULSE 85; RESP 16; TEMP 97.8
[2023-06-30] VITALS: BP 133/50; PULSE 78; RESP 20; TEMP 97.1
[2023-06-30] MEDS: METOPROLOL TARTRATE 25MG TABLET PO NR (01:09)
[2023-06-30 04:00] VITALS: BP 143/48; PULSE 83; RESP 20; TEMP 97.8
[2023-06-30 06:38] LABS: HEMATOCRIT. 37.8 % (42.0-52.0); HEMOGLOBIN. 12.8 g/dL (14.0-18.0); MEAN CORPUSCULAR HEMOGLOBIN 30.7 pg (28.0-32.0); MEAN CORPUSCULAR HGB CONC 33.8 g/dL (31.0-37.0); MEAN CORPUSCULAR VOLUME 90.7 fL (80.0-94.0); PLATELET 265 x1000/uL (130-400); RED BLOOD CELL COUNT 4.17 mill/uL (4.7-6.1); RED CELL DISTRIBUTION WIDTH 15.1 % (11.6-14.6); WHITE BLOOD COUNT 28.6 x1000/uL (4.5-11.0)
[2023-06-30 07:00] LABS: DIFFERENTIAL COMMENT 1
[2023-06-30 07:03] LABS: CALCIUM 8.3 mg/dL (8.7-10.4); CARBON DIOXIDE 23 mEq/L (21-32); CHLORIDE 105 mEq/L (98-107); CREATININE 0.7 mg/dL (0.6-1.3); GLUCOSE 88 mg/dL (70-105); POTASSIUM 3.8 mEq/L (3.5-5.1); SODIUM 134 mEq/L (136-145); UREA NITROGEN BLOOD 15 mg/dL (9-23)
[2023-06-30 08:00] VITALS: BP 152/106; PULSE 82; RESP 18; TEMP 98.1
[2023-06-30] MEDS: MAGNESIUM OXIDE 400MG TABLET PO SCH (08:55)
[2023-06-30] MEDS: AMLODIPINE 2.5MG TABLET PO SCH (08:55)
[2023-06-30 11:30] LABS: CLARITY URINE CLEAR (CLEAR); COLOR URINE YELLOW (YELLOW); GLUCOSE URINE NEGATIVE (NEGATIVE); KETONES URINE TRACE (NEGATIVE); LEUKOCYTE ESTERASE URINE TRACE (NEGATIVE); NITRITE URINE NEGATIVE (NEGATIVE); OCCULT BLOOD URINE 2+ (NEGATIVE); PH URINE 7.5 (4.5-8.0); PROTEIN URINE NEGATIVE (NEGATIVE); SPECIFIC GRAVITY URINE 1.029 (1.005-1.030)
[2023-06-30 11:49] LABS: SQUAMOUS EPITHELIAL CELL URINE RARE /lpf (RARE/1+)
[2023-06-30 11:50] LABS: WBC URINE 0-2 /hpf (0-2)
[2023-06-30 11:51] LABS: BACTERIA URINE TRACE
[2023-06-30 12:00] VITALS: BP 122/53; PULSE 83; RESP 18; TEMP 98.1
[2023-06-30 13:06] LABS: NUCLEATED RED BLOOD CELLS 1 /100 WBC; PLATELET ESTIMATE NORMAL
[2023-06-30 16:00] VITALS: BP 119/52; PULSE 83; RESP 18; TEMP 97.8
[2023-06-30 20:00] VITALS: BP 122/45; PULSE 88; RESP 18; TEMP 98.2
[2023-07-01] VITALS: BP 114/47; PULSE 83; RESP 19; TEMP 98.1
[2023-07-01 04:00] VITALS: BP 107/46; PULSE 82; RESP 17; TEMP 97.3
[2023-07-01 05:50] LABS: BASOPHILS % 0.3 % (0.0-2.0); EOSINOPHILS % 4.4 % (0.0-5.0); HEMATOCRIT. 37.8 % (42.0-52.0); HEMOGLOBIN. 12.7 g/dL (14.0-18.0); LYMPHOCYTES % 8.7 % (20.0-50.0); MEAN CORPUSCULAR HEMOGLOBIN 30.5 pg (28.0-32.0); MEAN CORPUSCULAR HGB CONC 33.6 g/dL (31.0-37.0); MEAN CORPUSCULAR VOLUME 90.6 fL (80.0-94.0); MEAN PLATELET VOLUME 9.1 fl (7.4-10.4); MONOCYTES % 8.9 % (2.0-8.0); NEUTROPHILS % 77.7 % (40.0-76.0); PLATELET 279 x1000/uL (130-400); RED BLOOD CELL COUNT 4.18 mill/uL (4.7-6.1); WHITE BLOOD COUNT 23.3 x1000/uL (4.5-11.0)
[2023-07-01 06:00] LABS: CALCIUM 8.4 mg/dL (8.7-10.4); CARBON DIOXIDE 24 mEq/L (21-32); CHLORIDE 105 mEq/L (98-107); CREATININE 0.7 mg/dL (0.6-1.3); GLUCOSE 78 mg/dL (70-105); POTASSIUM 3.9 mEq/L (3.5-5.1); SODIUM 136 mEq/L (136-145); UREA NITROGEN BLOOD 15 mg/dL (9-23)
[2023-07-01 08:00] VITALS: BP 112/48; PULSE 52; RESP 18; TEMP 97.8
[2023-07-01] MEDS: FAMOTIDINE 20MG TABLET PO SCH (09:17)
[2023-07-01 11:39] VITALS: BP 131/61; PULSE 84; RESP 18; TEMP 97.7
[2023-07-01 15:06] LABS: PLATELET ESTIMATE NORMAL
[2023-07-01 16:00] VITALS: BP 130/56; PULSE 100; RESP 18; TEMP 97.7
[2023-07-01 20:00] VITALS: BP 158/57; PULSE 93; RESP 19; TEMP 97.4
[2023-07-02] VITALS: BP 129/53; PULSE 65; RESP 18; TEMP 97.4
[2023-07-02 04:00] VITALS: BP 117/45; PULSE 94; RESP 18; TEMP 97.2
[2023-07-02 08:00] VITALS: BP 149/60; PULSE 93; RESP 20; TEMP 98.1
[2023-07-02 11:38] LABS: HEMATOCRIT. 35.5 % (42.0-52.0); HEMOGLOBIN. 12.1 g/dL (14.0-18.0); MEAN CORPUSCULAR HEMOGLOBIN 31.1 pg (28.0-32.0); MEAN CORPUSCULAR HGB CONC 33.9 g/dL (31.0-37.0); MEAN CORPUSCULAR VOLUME 91.5 fL (80.0-94.0); MEAN PLATELET VOLUME 8.7 fl (7.4-10.4); PLATELET 294 x1000/uL (130-400); RED BLOOD CELL COUNT 3.88 mill/uL (4.7-6.1); RED CELL DISTRIBUTION WIDTH 14.8 % (11.6-14.6); WHITE BLOOD COUNT 23.8 x1000/uL (4.5-11.0)
[2023-07-02 11:40] LABS: DIFFERENTIAL COMMENT 1
[2023-07-02 12:00] VITALS: BP 144/43; PULSE 84; RESP 18; TEMP 97.4
[2023-07-02 12:01] LABS: ALANINE AMINOTRANSFERASE 25 IU/L (10-49); ALBUMIN 2.9 g/dL (3.2-4.8); ASPARTATE AMINOTRANSFERASE 36 IU/L (<34); BILIRUBIN TOTAL 0.5 mg/dL (0.1-1.0); CALCIUM 8.1 mg/dL (8.7-10.4); CARBON DIOXIDE 25 mEq/L (21-32); CHLORIDE 104 mEq/L (98-107); CREATININE 0.8 mg/dL (0.6-1.3); GLUCOSE 114 mg/dL (70-105); PROTEIN TOTAL 6.3 g/dL (6.0-8.3); SODIUM 134 mEq/L (136-145); UREA NITROGEN BLOOD 14 mg/dL (9-23)
[2023-07-02 12:23] LABS: PLATELET ESTIMATE NORMAL
[2023-07-02 16:00] VITALS: BP 138/79; PULSE 86; RESP 20; TEMP 97.8
[2023-07-02 20:00] VITALS: BP 143/58; PULSE 89; RESP 18; TEMP 97.7
[2023-07-03] VITALS: BP 154/52; PULSE 89; RESP 20; TEMP 97.2
[2023-07-03 04:00] VITALS: BP 135/67; PULSE 77; RESP 20; TEMP 97.4
[2023-07-03 07:18] LABS: BASOPHILS % 0.5 % (0.0-2.0); EOSINOPHILS % 2.7 % (0.0-5.0); HEMATOCRIT. 37.8 % (42.0-52.0); HEMOGLOBIN. 12.9 g/dL (14.0-18.0); LYMPHOCYTES % 9.7 % (20.0-50.0); MEAN CORPUSCULAR HEMOGLOBIN 31.2 pg (28.0-32.0); MEAN CORPUSCULAR HGB CONC 34.2 g/dL (31.0-37.0); MEAN CORPUSCULAR VOLUME 91.1 fL (80.0-94.0); MEAN PLATELET VOLUME 9.9 fl (7.4-10.4); MONOCYTES % 11.8 % (2.0-8.0); NEUTROPHILS % 75.3 % (40.0-76.0); PLATELET 260 x1000/uL (130-400); RED BLOOD CELL COUNT 4.15 mill/uL (4.7-6.1); WHITE BLOOD COUNT 23.8 x1000/uL (4.5-11.0)
[2023-07-03 07:32] LABS: CALCIUM 8.3 mg/dL (8.7-10.4); CARBON DIOXIDE 24 mEq/L (21-32); CHLORIDE 105 mEq/L (98-107); CREATININE 0.7 mg/dL (0.6-1.3); GLUCOSE 85 mg/dL (70-105); POTASSIUM 4.6 mEq/L (3.5-5.1); SODIUM 135 mEq/L (136-145); UREA NITROGEN BLOOD 12 mg/dL (9-23)
[2023-07-03 08:00] VITALS: BP 104/73; PULSE 85; RESP 17; TEMP 96.8
[2023-07-03 12:00] VITALS: BP 107/70; PULSE 80; RESP 17; TEMP 97.4
[2023-07-03 16:00] VITALS: BP 110/68; PULSE 83; RESP 17; TEMP 98
[2023-07-03 20:00] VITALS: BP 144/60; PULSE 114; RESP 19; TEMP 97.7
[2023-07-04] VITALS (7 sets, daily range): BP systolic 139–145; BP diastolic 50–64; PULSE 73–109; RESP 18–19; TEMP 97.5–98.8
[2023-07-04] MEDS: MEROPENEM 1G/100ML 100 ML IV SCH (05:39)
[2023-07-04 07:50] LABS: CALCIUM 8.3 mg/dL (8.7-10.4); CARBON DIOXIDE 23 mEq/L (21-32); CHLORIDE 105 mEq/L (98-107); CREATININE 0.8 mg/dL (0.6-1.3); GLUCOSE 94 mg/dL (70-105); POTASSIUM 4.7 mEq/L (3.5-5.1); SODIUM 134 mEq/L (136-145); UREA NITROGEN BLOOD 12 mg/dL (9-23)
[2023-07-04 07:51] LABS: HEMATOCRIT. 36.5 % (42.0-52.0); MEAN CORPUSCULAR HEMOGLOBIN 30.3 pg (28.0-32.0); MEAN CORPUSCULAR HGB CONC 32.8 g/dL (31.0-37.0); MEAN CORPUSCULAR VOLUME 92.2 fL (80.0-94.0); MEAN PLATELET VOLUME 9.1 fl (7.4-10.4); PLATELET 318 x1000/uL (130-400); RED BLOOD CELL COUNT 3.96 mill/uL (4.7-6.1); RED CELL DISTRIBUTION WIDTH 15.1 % (11.6-14.6); WHITE BLOOD COUNT 18.8 x1000/uL (4.5-11.0)
[2023-07-04 07:58] LABS: DIFFERENTIAL COMMENT 1
[2023-07-04 16:26] LABS: PLATELET ESTIMATE NORMAL
[2023-07-05] VITALS: BP 94/62; PULSE 100; RESP 19; TEMP 96.2
[2023-07-05 04:00] VITALS: BP_SYST 143; BP_SYST 147; BP_DIAS 56; BP_DIAS 63; PULSE 76; RESP 18; TEMP 98.2
[2023-07-05 08:00] VITALS: BP 124/93; PULSE 91; RESP 1; RESP 17; TEMP 96.5
[2023-07-05 11:05] LABS: BASOPHILS % 0.8 % (0.0-2.0); EOSINOPHILS % 2.9 % (0.0-5.0); HEMATOCRIT. 36.3 % (42.0-52.0); HEMOGLOBIN. 12.1 g/dL (14.0-18.0); LYMPHOCYTES % 11.8 % (20.0-50.0); MEAN CORPUSCULAR HEMOGLOBIN 30.5 pg (28.0-32.0); MEAN CORPUSCULAR HGB CONC 33.2 g/dL (31.0-37.0); MEAN PLATELET VOLUME 8.5 fl (7.4-10.4); MONOCYTES % 13.5 % (2.0-8.0); PLATELET 305 x1000/uL (130-400); RED BLOOD CELL COUNT 3.95 mill/uL (4.7-6.1); RED CELL DISTRIBUTION WIDTH 14.9 % (11.6-14.6); WHITE BLOOD COUNT 13.4 x1000/uL (4.5-11.0)
[2023-07-05 11:15] LABS: CALCIUM 8.2 mg/dL (8.7-10.4); CARBON DIOXIDE 24 mEq/L (21-32); CHLORIDE 104 mEq/L (98-107); CREATININE 0.7 mg/dL (0.6-1.3); GLUCOSE 122 mg/dL (70-105); POTASSIUM 4.4 mEq/L (3.5-5.1); SODIUM 134 mEq/L (136-145); UREA NITROGEN BLOOD 14 mg/dL (9-23)
[2023-07-05 12:00] VITALS: BP 144/55; PULSE 72; RESP 18; TEMP 96.3
[2023-07-05 16:00] VITALS: BP 109/58; PULSE 71; RESP 18; TEMP 97.5
[2023-07-05 20:00] VITALS: BP 122/46; PULSE 71; RESP 19; TEMP 97.2
[2023-07-06] VITALS (7 sets, daily range): BP systolic 102–141; BP diastolic 42–66; PULSE 70–79; RESP 18–20; TEMP 95.2–98.1
[2023-07-06] MEDS ORDERED: NALOXONE HCL 0.4MG/ML VIAL IV PRN (15:45)
[2023-07-06] MEDS: HYDROCODONE/ACETAMINOPHEN 5/325MG TABLET PO PRN (16:05)
[2023-07-06 21:16] LABS: BASOPHILS % 0.5 % (0.0-2.0); EOSINOPHILS % 2.9 % (0.0-5.0); HEMATOCRIT. 36.9 % (42.0-52.0); HEMOGLOBIN. 12.2 g/dL (14.0-18.0); LYMPHOCYTES % 10.3 % (20.0-50.0); MEAN CORPUSCULAR HEMOGLOBIN 30.5 pg (28.0-32.0); MEAN CORPUSCULAR VOLUME 92.3 fL (80.0-94.0); MEAN PLATELET VOLUME 7.8 fl (7.4-10.4); MONOCYTES % 9.8 % (2.0-8.0); NEUTROPHILS % 76.5 % (40.0-76.0); PLATELET 345 x1000/uL (130-400); RED BLOOD CELL COUNT 3.99 mill/uL (4.7-6.1); RED CELL DISTRIBUTION WIDTH 14.9 % (11.6-14.6); WHITE BLOOD COUNT 16.5 x1000/uL (4.5-11.0)
[2023-07-06 21:28] LABS: CALCIUM 8.7 mg/dL (8.7-10.4); CARBON DIOXIDE 24 mEq/L (21-32); CHLORIDE 102 mEq/L (98-107); CREATININE 0.8 mg/dL (0.6-1.3); GLUCOSE 119 mg/dL (70-105); POTASSIUM 4.5 mEq/L (3.5-5.1); SODIUM 131 mEq/L (136-145); UREA NITROGEN BLOOD 15 mg/dL (9-23)
[2023-07-07] MEDS ORDERED: MEROPENEM 1G/100ML 100 ML IV SCH (04:00)
[2023-07-07] MEDS ORDERED: FAMOTIDINE 20MG TABLET PO SCH (09:00)
== END 2023-07-06 23:59 | DRG 720 ==
LOC: ER 14:33 → 7WST 18:12 → EDBEDREQTM 18:14 → EDBEDREQ 18:14 → 6EST 07-03 16:27
PROVIDERS: ADMIT Family Medicine Adult Medicine; ATTEND Family Medicine Adult Medicine
PROC: 5A09357 Assistance with Respiratory Ventilation, Less than 24 Consecutive Hours, Continuous Positive Airway Pressure (ICD-10-PCS; principal; 2023-07-05)
DX: A41.9 Sepsis, unspecified organism (principal); G82.50 Quadriplegia, unspecified; E46 Unspecified protein-calorie malnutrition; K56.690 Other partial intestinal obstruction; Z89.611 Acquired absence of right leg above knee; I48.0 Paroxysmal atrial fibrillation; E78.00 Pure hypercholesterolemia, unspecified; F20.9 Schizophrenia, unspecified; N39.0 Urinary tract infection, site not specified; I10 Essential (primary) hypertension; I49.1 Atrial premature depolarization; F41.9 Anxiety disorder, unspecified; S31.20XA Unspecified open wound of penis, initial encounter; J44.9 Chronic obstructive pulmonary disease, unspecified; I73.9 Peripheral vascular disease, unspecified; F31.9 Bipolar disorder, unspecified; N20.0 Calculus of kidney; N32.89 Other specified disorders of bladder; Z89.612 Acquired absence of left leg above knee; Z79.82 Long term (current) use of aspirin; Z86.711 Personal history of pulmonary embolism; Z87.440 Personal history of urinary (tract) infections; Z87.891 Personal history of nicotine dependence; Z89.519 Acquired absence of unspecified leg below knee; Z79.899 Other long term (current) drug therapy; X58.XXXA Exposure to other specified factors, initial encounter; Y93.89 Activity, other specified; Y92.89 Other specified places as the place of occurrence of the external cause; Y99.8 Other external cause status
CPT/HCPCS: 36415; 71045; 74018; 74176; 74177; 80048; 80053; 80061; 81003; 82962; 83605; 83735; 84145; 84484; 85025; 93005; 93306; 99291; A6261; C1893; J2185; J2543; J3475; J7030; Q9963